=== PATIENT | male | born 1950 | race Caucasian/White ===

== ENCOUNTER → 2018-01-28 | Outpatient (CLI) | payer MEDICARE, OTHER ==
--- NOTE | 2018-01-28 08:15 | US ---
EXAMINATION TYPE: US abdomen complete DATE OF EXAM: 01/28/2018 COMPARISON: NONE CLINICAL HISTORY: R10.13 Epigastric pain. EXAM MEASUREMENTS: Liver Length: 15.6 cm Gallbladder Wall: 0.2 cm CBD: 0.2 cm Spleen: 11.2 cm Right Kidney: 11.2 x 3.8 x 4.8 cm Left Kidney: 11.2 x 4.1 x 4.5 cm Pancreas: wnl Liver: wnl Gallbladder: wnl CBD: wnl Spleen: wnl Right Kidney: No hydronephrosis or masses seen Left Kidney: No hydronephrosis or masses seen Upper IVC: wnl Abd Aorta: atherosclerotic changes noted, bifurcation obscured by bowel gas. Midportion measures up to 2.8 cm. The liver is homogenous. The intrahepatic portion of the IVC and proximal abdominal aorta are within normal limits. There is no evidence of cholelithiasis. Common bile duct is unremarkable. The visu alized portions of the pancreas are homogenous. The spleen is unremarkable. Kidneys are symmetric a nd free of hydronephrosis. No renal lesions are seen. IMPRESSION: No sonographic evidence of cholelithiasis or acute cholecystitis. No nephrolithiasis or h ydronephrosis. Atherosclerosis of the abdominal aorta with prominent size in its midportion but no ev idence of aneurysmal dilatation.
[2018-01-28 08:16] LABS: Basophils # (A) 0.1 k/uL (0-0.2); Basophils % (A) 1 %; Eosinophils # (A) 0.4 k/uL (0-0.7); Eosinophils % (A) 4 %; HCT 35.7 % (39.0-53.0); HGB 11.6 gm/dL (13.0-17.5); Lymphocytes # (A) 1.8 k/uL (1.0-4.8); Lymphocytes % (A) 17 %; MCH 27.9 pg (25.0-35.0); MCHC 32.6 g/dL (31.0-37.0); MCV 85.4 fL (80.0-100.0); Monocytes # (A) 0.7 k/uL (0-1.0); Monocytes % (A) 6 %; Neutrophils # (A) 7.6 k/uL (1.3-7.7); Neutrophils % (A) 70 %; Platelet Count 373 k/uL (150-450); RBC 4.18 m/uL (4.30-5.90); RDW 13.5 % (11.5-15.5); WBC 10.8 k/uL (3.8-10.6)
[2018-01-28 08:44] LABS: ALT 22 U/L (21-72); AST 14 U/L (17-59); Albumin 3.7 g/dL (3.5-5.0); Alkaline Phosphatase 70 U/L (38-126); Anion Gap 12 mmol/L; Blood Urea Nitrogen 18 mg/dL (9-20); Calcium 9.1 mg/dL (8.4-10.2); Carbon Dioxide 23 mmol/L (22-30); Chloride 108 mmol/L (98-107); Glucose 94 mg/dL (74-99); Potassium 4.6 mmol/L (3.5-5.1); Sodium 143 mmol/L (137-145); Total Bilirubin 0.5 mg/dL (0.2-1.3); Total Protein 6.4 g/dL (6.3-8.2)
== END | disposition home or self-care (01) ==
LOC: RADUSWWP 07:18
PROVIDERS: ATTEND Internal Medicine Gastroenterology
DX: I70.0 Atherosclerosis of aorta (principal); F10.10 Alcohol abuse, uncomplicated
CPT/HCPCS: 36415; 76700; 80053; 85025

== ENCOUNTER 2018-03-13 08:59 | Day surgery (SDC) | payer MEDICARE, OTHER ==
[2018-03-11 15:00] VITALS: BMI 25.1
[~2018-03-13 08:59] MED LIST: LACTATED RINGERS 1,000 ML IV SCH
[2018-03-13] MEDS ORDERED: LIDOCAINE 1% 20 ML VIAL (10MG/ML) FOR IV START INTRADERMA ONE (10:19)
[2018-03-13 10:33] VITALS: RESP 16; TEMP 98.4
[2018-03-13] MEDS ORDERED: FAMOTIDINE 20 MG/2 ML VIAL IVP ONE (10:43)
[2018-03-13] MEDS ORDERED: PROPOFOL 10 MG/ML 20 ML VIAL IV ONE (10:51)
--- NOTE | 2018-03-13 11:12 | P.PCN ---
Date of Procedure: 03/13/18 Procedure(s) Performed: BRIEF HISTORY: Patient is a 67-year-old pleasant white male, scheduled for an elective colonoscopy as a part of screening for colon neoplasia. PROCEDURE PERFORMED: Colonoscopy with biopsy and snare polypectomy and tattooing with Joann ink.. PREOPERATIVE DIAGNOSIS: For colon cancer. IV sedation per Anesthesia. PROCEDURE: After informed consent was obtained, the patient, was brought into the endoscopy unit. IV sedation was administered by Anesthesia under continuous monitoring. Digital rectal examination was normal. Initially the Olympus CF- 160 flexible video colonoscope was then inserted in the rectum, gradually advanced into the hepatic flexure where there was a circumferential ulcerated near obstructing mass identified in the scope could not be advanced further. At this time multiple biopsies were done from the ulcerated mass. Tattooing was performed in the distal end of the mass. The transverse colon, descending colon, sigmoid colon, and rectum appeared normal. In the rectum there were 5 mm 2 polyps that were removed by snare polypectomy. Scattered sigmoid diverticulosis seen. Retroflexion was performed in the rectum and small internal hemorrhoids were seen. The patient tolerated the procedure well. IMPRESSION: Circumferential ulcerated near obstructing mass in the hepatic flexure status post multiple biopsies. Scope could not be advanced into the right colon 5 mg 2 proximal rectal polyp status post polypectomy scattered sigmoidal diverticulosis RECOMMENDATIONS: Findings of this examination were discussed with the patient as well as his family. He was advised to follow with the biopsy results. He will be scheduled for a CT of the abdomen and pelvis and he'll be seen in office early next week.
[2018-03-13 11:46] VITALS: BP 144/84; PULSE 55
== END 2018-03-13 12:32 | disposition home or self-care (01) ==
LOC: ORWHC2ENDO 08:59
PROVIDERS: ATTEND Internal Medicine Gastroenterology
DX: Z12.11 Encounter for screening for malignant neoplasm of colon (principal); C18.3 Malignant neoplasm of hepatic flexure; K62.1 Rectal polyp; K57.30 Diverticulosis of large intestine without perforation or abscess without bleeding; K64.8 Other hemorrhoids; K21.9 Gastro-esophageal reflux disease without esophagitis; Z79.899 Other long term (current) drug therapy
CPT/HCPCS: 88305; 45380; 45385; 45381; J2704; 44404

== ENCOUNTER → 2018-03-15 | Outpatient (CLI) | payer MEDICARE, OTHER ==
[2018-03-15 18:24] LABS: Blood Urea Nitrogen 17 mg/dL (9-20)
--- NOTE | 2018-03-16 21:31 | CT ---
EXAMINATION TYPE: CT abdomen pelvis wo/w con DATE OF EXAM: 03/15/2018 COMPARISON: NONE HISTORY: 67-year-old male with abdominal pain/colon mass TECHNIQUE: Contiguous axial scanning of the abdomen and pelvis before and after administration of 100 ml Isovue 300 IV contrast. Delayed images through the kidneys and coronal/sagittal reconstructions performed. CT DLP: 1984 mGycm Automated exposure control for dose reduction was used. FINDINGS: The heart is normal size with a small anterior basilar pericardial effusion. Lung bases clear without pleural effusion. There is some focal narrowing of the origin of the celiac axis with slight dilatat ion of the proximal segment and 9 mm. If there are any chronic symptoms in this patient, correlation could be made for possible median arcuate ligament syndrome. No focal liver lesion or biliary ductal dilatation. Portal venous system is patent. Gallbladder, adrenal glands, kidneys, spleen, appear within normal limits. Suggestion of a small 7 mm hypodense lesion along the distal pancreatic body, axial image 18. A few borderline sized mid abdominal lymph nodes measure 7 mm, axial image 32 and coronal image 34. M oderate atherosclerotic calcifications with fusiform dilatation of the infrarenal abdominal aorta up to 2.8 cm. Distal abdominal aorta is also fusiform dilated at 2.4 cm. Moderate prostatic calcificatio ns in the common iliac arteries. No dilated small bowel, free fluid, or free air. Oral contrast has progressed to the rectum. There is some circumferential wall thickening of the distal sigmoid and rectum with a sigmoid diverticulosis. No surrounding inflammatory change. Moderate to large fatty direct left inguinal hernia containing some fluid. There is an irregular annular mass involving the middle third transverse colon spanning 8.5 cm narrow ing the colonic lumen. Prostate gland is enlarged measuring 5.7 cm wide. Bladder incompletely distended. No abnormal fluid c ollection in the pelvis or pelvic lymphadenopathy. Bones: Degenerative changes at the hips. Additional degenerative changes throughout the lumbar spine. No osseous destructive process. IMPRESSION: 1. IRREGULAR ANNULAR MASS INVOLVING AN 8.5 CM SEGMENT OF MID TRANSVERSE COLON HIGHLY SUGGESTIVE OF CO LEO CANCER. 2. THERE ARE A VIEW BORDERLINE SIZED MIDABDOMINAL LYMPH NODES MEASURING UP TO 7 MM WHICH ARE NONSPECI FIC. 3. MODERATE TO LARGE FAT-CONTAINING DIRECT LEFT INGUINAL HERNIA ALSO CONTAINS SOME FLUID. CORRELATE F OR ANY LEFT INGUINAL PAIN TO EXCLUDE HERNIA INCARCERATION. 4. SIGMOID DIVERTICULOSIS. THERE IS MILD WALL THICKENING OF THE DISTAL SIGMOID AND RECTUM THAT COULD REPRESENT COLITIS. THE WALL THICKENING IS NOT CENTERED ALONG ANY DIVERTICULA TO SUGGEST DIVERTICULITI S. 5. A 7 MM HYPODENSE LESION IN THE pancreatic BODY. SOME DIFFERENTIAL CONSIDERATIONS INCLUDE BUT ARE N OT LIMITED TO a DILATED SIDE BRANCH RADICLE, SEQUELA OF PRIOR PANCREATITIS, AND A SMALL SEROUS CYSTAD ENOMA. ATTENTION ON PATIENT'S FOLLOW-UP EXAMS. 6. PROSTATOMEGALY (5.7 CM WIDE).
== END | disposition home or self-care (01) ==
LOC: RADCTMAIN 17:41
PROVIDERS: ATTEND Internal Medicine Gastroenterology
DX: K63.89 Other specified diseases of intestine (principal); K40.90 Unilateral inguinal hernia, without obstruction or gangrene, not specified as recurrent; K57.30 Diverticulosis of large intestine without perforation or abscess without bleeding; K86.89 Other specified diseases of pancreas; N40.0 Benign prostatic hyperplasia without lower urinary tract symptoms
CPT/HCPCS: 82565; 84520; 74178; 36415; Q9967

== ENCOUNTER → 2018-12-16 | Outpatient (CLI) | payer MEDICARE, OTHER ==
[2018-12-16 11:37] LABS: Blood Urea Nitrogen 13 mg/dL (9-20)
--- NOTE | 2018-12-16 14:03 | CT ---
EXAMINATION TYPE: CT abdomen pelvis w con DATE OF EXAM: 12/16/2018 COMPARISON: 03/15/2018 HISTORY: 68-year-old male Follow up colon CA. TECHNIQUE: Contiguous axial scanning of the abdomen and pelvis following administration of 100 ml Iso emma 300 IV contrast. Delayed images through the kidneys and coronal/sagittal reconstructions perform ed. CT DLP: 1373 mGycm Automated exposure control for dose reduction was used. FINDINGS: Heart normal size without pericardial effusion. Mild dependent atelectasis lung bases. Some strandy a telectasis inferior lingula. No pleural effusion. Ectatic aorta at the thoracoabdominal junction measuring 2.8 cm. Mild to moderate atherosclerotic plaque within the proximal SMA. Fusiform dilatations of the infraren al abdominal aorta measuring 2.8 cm and then 2.4 cm, unchanged. Moderate scattered atherosclerotic ao rtic calcifications are present. No focal liver lesion or biliary ductal dilatation. Stable 8 mm pancreatic body hypodense lesion. Stability suggests a benign etiology. Gallbladder, adrenal glands, right kidney, spleen appear within normal limits. A couple subcentimeter hypodensities in the left kidney are unchanged, likely represent cysts Postsurgical changes of partial colectomy with colonic colonic anastomosis along the proximal third t ransverse colon. There is a tortuous course to some of the bowel loops in the right side of the abdom en around the anastomosis. Mild circumferential wall thickening involving the proximal to mid sigmoid colon with diverticular ch sobia. Some prominent pericolonic stranding along this region, likely pericolonic vessels. Redemonstrated is a large direct left inguinal hernia containing a few unopacified small bowel loops. No abnormal bowel dilatation. There is a new, mildly enlarged upper mid abdominal mesenteric lymph node measuring 1.3 cm. Otherwise, no additional mesenteric or retroperitoneal lymphadenopathy seen. Bladder distended. Prostate gland is heterogeneous and enlarged measuring 5.8 cm wide. No abnormal fl uid collection in the pelvis or pelvic lymphadenopathy seen. Bones: Mild degenerative changes of the hips. Hypertrophic facet arthropathy lower lumbar spine. 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 IMPRESSION: 1. INTERVAL PARTIAL COLECTOMY WITH ANASTOMOSIS ALONG THE PROXIMAL THIRD TRANSVERSE COLON. 2. A NEW, MILDLY ENLARGED UPPER MID ABDOMINAL MESENTERIC LYMPH NODE MEASURING 1.3 CM. SHORT INTERVAL FOLLOW-UP RECOMMENDED A METASTATIC LYMPH NODE IS NOT EXCLUDED AT THIS TIME. 3. NO OTHER EVIDENCE FOR METASTATIC DISEASE. 4. SIGMOID DIVERTICULOSIS WITH WALL THICKENING. THERE IS SURROUNDING FAT STRANDING SUSPECTED TO REPRE SENT PERICOLONIC VESSELS RATHER THAN INFLAMMATION. CORRELATE FOR ANY ACUTE SYMPTOMS . IF NO ACUTE SYM PTOMS, CORRELATE FOR POSSIBLE CHRONIC DIVERTICULITIS. 5. TORTUOUS COURSE TO MANY OF THE BOWEL LOOPS IN THE RIGHT SIDE OF THE ABDOMEN LOCATED AROUND THE BENSON STOMOSIS LIKELY A PRODUCT OF REPOSITIONING OF THE BOWEL AND MESENTERY AFTER COLON RESECTION.
== END | disposition home or self-care (01) ==
LOC: RADCTMAIN 10:47
PROVIDERS: ATTEND Internal Medicine Hematology & Oncology
DX: K57.30 Diverticulosis of large intestine without perforation or abscess without bleeding (principal); K63.89 Other specified diseases of intestine; R59.0 Localized enlarged lymph nodes; C18.4 Malignant neoplasm of transverse colon; Z91.048 Other nonmedicinal substance allergy status; Z90.49 Acquired absence of other specified parts of digestive tract
CPT/HCPCS: 82565; 84520; 74177; 36415; Q9967

== ENCOUNTER → 2019-03-13 | Outpatient (CLI) | payer MEDICARE, OTHER ==
--- NOTE | 2019-03-13 10:38 | CT ---
EXAMINATION TYPE: CT abdomen pelvis w con DATE OF EXAM: 03/13/2019 COMPARISON: 12/16/2018 and 03/15/2018 HISTORY: Follow up for known colon CA. CT DLP: 991.5 mGycm Automated exposure control for dose reduction was used. TECHNIQUE: Helical acquisition of images was performed from the lung bases through the pelvis. CONTRAST: Performed with Oral Contrast and with IV Contrast, patient injected with 100 mL of Isovue 370. FINDINGS: LUNG BASES: Right basilar 2 mm pulmonary nodule is unchanged retrospectively from the prior on series 4 image 7, solid in nature, and of low suspicion for metastasis. Minimal strand-like bibasilar atele ctasis is also seen. LIVER/GB: No focal hepatic lesion is identified. No intrahepatic biliary ductal dilatation. No cholel ithiasis. PANCREAS: There is redemonstration of a hypoattenuated approximately 6 mm pancreatic neck lesion. SPLEEN: No significant abnormality is seen. ADRENALS: No focal adrenal gland nodule KIDNEYS: Kidneys enhance and excrete symmetrically other than a punctate to small to accurately mya cterize left inferior renal lesion on series 3 image 30. No hydronephrosis. FREE AIR: No free air is visualized. REPRODUCTIVE ORGANS: There is enlarged prostate gland measuring up to 5.7 cm with central zone calcif ications. URINARY BLADDER: No significant abnormality is seen. ADENOPATHY: Marked local progression of disease of a pathologic lymph node within the mid mesentery previously measuring 1.3 cm in short axis and now measuring up to 3.4 cm in short axis with central n ecrosis and surrounding inflammatory change. This appears solitary as no additional pathologically en larged lymph nodes are appreciated in the abdomen or pelvis. OSSEOUS STRUCTURES: No new suspicious osseous lesion. 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 BOWEL: There has been partial colectomy of the previously seen annular transverse colonic mass with a nastomosis again noted along the proximal third of the transverse colon. There is long segment sigmoid bowel wall thickening and numerous sigmoid diverticula. Findings could be on the basis of chronic diverticulitis. Focal narrowing of the mid transverse colon distal to the anastomotic site is seen on the prior and appears to relate to an incomplete stricture (series 3 imag es 40 through 45). OTHER: There is a small bowel containing left inguinal hernia. No dilation of bowel to suggest curren t obstruction. Patulous right inguinal canal is also seen with small bowel abutting the defect. Again there is fusiform dilatation of the infrarenal abdominal aorta measuring up to 2.8 cm. Moderate atherosclerosis of the abdominal aorta and its branches is again noted. IMPRESSION: 1. MARKED LOCAL PROGRESSION OF PATHOLOGIC ADENOPATHY IN THE MID MESENTERY ADJACENT TO THE PRIOR TRANS VERSE COLON CARCINOMA WITH INCREASE IN SIZE FROM 1.3 CM IN SHORT AXIS TO 3.4 CM IN SHORT AXIS AND [place] TRAL NECROSIS. NO ADDITIONAL ADENOPATHY. 2. SMALL BOWEL CONTAINING LEFT INGUINAL HERNIA AND PATULOUS RIGHT INGUINAL RING WITH SMALL BOWEL ABUT MENT. 3. INCOMPLETE MID TRANSVERSE COLONIC STRICTURE SIMILAR TO THE PRIOR EXAM DISTAL TO THE ANASTOMOTIC SI TE. 4. LONG SEGMENT SIGMOID BOWEL WALL THICKENING APPEARS SLIGHTLY IMPROVED FROM THE PRIOR AND IS LIKELY ON THE BASIS OF CHRONIC DIVERTICULITIS. 5. FUSIFORM ECTASIA OF THE ABDOMINAL AORTA. 6. RETROSPECTIVELY STABLE PUNCTATE RIGHT LOWER LOBE PULMONARY NODULE OF LOW SUSPICION FOR METASTASIS.
== END | disposition home or self-care (01) ==
LOC: RADCTMAIN 07:57
PROVIDERS: ATTEND Internal Medicine Hematology & Oncology
DX: C18.4 Malignant neoplasm of transverse colon (principal); K40.90 Unilateral inguinal hernia, without obstruction or gangrene, not specified as recurrent; K56.699 Other intestinal obstruction unspecified as to partial versus complete obstruction; K57.32 Diverticulitis of large intestine without perforation or abscess without bleeding; J30.1 Allergic rhinitis due to pollen; Z91.048 Other nonmedicinal substance allergy status
CPT/HCPCS: 82565; 84520; 74177; 36415; Q9967

== ENCOUNTER → 2019-03-29 | Outpatient (CLI) | payer MEDICARE, OTHER ==
--- NOTE | 2019-03-31 06:47 | PE ---
EXAMINATION TYPE: PET CT fusion skull to thigh DATE OF EXAM: 03/29/2019 COMPARISON: CT abdomen and pelvis March 13, 2019 and older CTs HISTORY: Colorectal cancer progress study after completing chemotherapy December 08, 2018, history of colon surgery in 2018. TECHNIQUE: Following the intravenous administration of 11.573 mCi of F-18 FDG, whole body images are performed from the skull base to the midthigh. Images are reviewed on the computer in the coronal, axial, and sagittal planes. Reconstructed rotating images are created on independent workstation and reviewed on the computer. A noncontrast CT is performed in conjunction with the PET scan. SCAN: Subsequent Scan FINDINGS: SKULL BASE AND NECK: There are suspicious hypodense right thyroid hypermetabolic nodule measuring 2. 0 x 1.2 cm axial image 60, max SUV is 28.22. CHEST, MEDIASTINUM, AND HILAR REGION: No evidence of suspicious hypermetabolic uptake in the thorax a re present. ABDOMEN AND PELVIS: Midabdominal mesenteric spiculated mass is redemonstrated measuring 4.2 x 3.7 cm axial image 159, max SUV is 6.99 on axial image 154. No additional areas of suspicious hypermetabolic uptake. OSSEOUS STRUCTURES: No suspicious areas of abnormal hypermetabolic uptake. OTHER CT: Mild calcified plaque bilateral carotid bulbs is present. There is right internal jugular Mediport catheter terminating in SVC. Background mild underlying emph ysematous change is present. Cardiomegaly is seen. Moderate coronary artery calcification is identifi ed which is noted marker for underlying coronary artery disease. Diverticula in sigmoid colon are present. Surgical changes from right-sided partial colectomy are red emonstrated near axial image 173. Enlarged prostate gland consistent with BPH is identified. There is persistent large left inguinal hernia containing fat as well as portions of bowel and mesenteric ves sels. There is multilevel facet arthropathy in the mid to lower lumbar spine. Multilevel spurring of the th oracolumbar spine noted. IMPRESSION: 1. Confirmation of malignant recurrence or progression in the midabdomen. 2. Suspicious markedly hypermetabolic right thyroid nodule, advise ultrasound guided sampling to excl ude second malignancy.
== END | disposition home or self-care (01) ==
LOC: RADPETMAIN 12:32
PROVIDERS: ATTEND Internal Medicine Hematology & Oncology
DX: C18.4 Malignant neoplasm of transverse colon (principal); E04.1 Nontoxic single thyroid nodule
CPT/HCPCS: 78815; A9552

== ENCOUNTER → 2019-04-02 | Day surgery (SDC) | payer MEDICARE, OTHER ==
[~2019-04-02] MED LIST changes: +ALPRAZolam 0.25 MG TAB PO STA; +HYDROmorphone 1 MG/ML 1 ML SYRINGE IVP STA; -LACTATED RINGERS 1,000 ML IV SCH
[2019-04-02 09:37] VITALS: RESP 16; TEMP 97.6
[2019-04-02 09:38] LABS: Mean Platelet Volume 7.4; Platelet Count 283 k/uL (150-450)
[2019-04-02 09:47] LABS: Prothrombin Time 10.7 sec (9.0-12.0)
[2019-04-02 12:12] VITALS: BP 126/74; PULSE 64
--- NOTE | 2019-04-02 14:28 | CT ---
EXAMINATION TYPE: CT biopsy abdomen percutaneous DATE OF EXAM: 04/02/2019 HISTORY: Abdominal mass COMPARISON: Prior CT 03/13/2019 Maximal barrier technique was utilized. The skin overlying a suitable path to the lesion was localiz ed using CT and the overlying skin was prepped and draped. Lidocaine used for local anesthesia. A s kin garland made with a scalpel. Using CT guidance, access was gained to the lesion with a 17-gauge hair de needle. Core specimen submitted to cytology following 18-gauge coaxial needle placement. 2 passes performed. Following the procedure no immediate complications. The patient is discharged in stabl e condition. Hemostasis achieved. IMPRESSION: SUCCESSFUL CT GUIDED CORE BIOPSY of abdominal mass. PATHOLOGY PENDING. THIS PROCEDURE WAS PERFORMED BY THE UNDERSIGNED.
== END | disposition home or self-care (01) ==
LOC: RADPROMAIN 09:03
PROVIDERS: ATTEND Internal Medicine Hematology & Oncology
DX: R19.07 Generalized intra-abdominal and pelvic swelling, mass and lump (principal); C18.4 Malignant neoplasm of transverse colon
CPT/HCPCS: 36415; 49180; 77012; 85049; 85610; 88305; 88341; 88342

== ENCOUNTER → 2019-10-25 | Outpatient (CLI) | payer MEDICARE, OTHER ==
--- NOTE | 2019-10-28 08:07 | PE ---
EXAMINATION TYPE: PET CT fusion skull to thigh DATE OF EXAM: 10/25/2019 COMPARISON: PET/CT dated 03/29/[address] abdomen pelvis dated 03/13/2019 HISTORY: Colon carcinoma. Subsequent exam. Chemotherapy completed in 2019 and colorectal surgery on . Suspected recurrence on the prior CT of 03/13/2019 and PET/CT of 03/29/2019 with negative subs equent biopsy. However increase in CEA level clinically. TECHNIQUE: Following the intravenous administration of 10.89 mCi of F-18 FDG, whole body images are performed from the skull base to the midthigh. Images are reviewed on the computer in the coronal, a xial, and sagittal planes. Reconstructed rotating images are created on independent workstation and reviewed on the computer. A localization and attenuation correction CT is performed in conjunction with the PET scan. SCAN: Subsequent FINDINGS: Mediastinal background: 1.76 Abdominal background: 2.86 SKULL BASE AND NECK: There is a hypermetabolic thyroid nodule again measuring approximately 2.0 cm p reviously having a maximum SUV of 28.22 and currently having a maximum SUV of 50 to CHEST, MEDIASTINUM, AND HILAR REGION: No suspicious hypermetabolic activity. ABDOMEN AND PELVIS: There is response to treatment with decrease in size of the mesenteric mass/adeno tyler from the prior PET/CT of 4.2 x 3.7 to 2.1 x 1.8. This is seen at the previous site of colon car cinoma and remains highly suspicious for recurrence. This has a current maximum SUV of 2.39 and prior maximum SUV of 6.99. Partial colectomy is seen. 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 There is some focal uptake around a left hernia defect circumferentially. Correlate for acute strain. OSSEOUS STRUCTURES: No suspicious hypermetabolic activity. OTHER CT: There is a right-sided Mediport. Mild emphysematous change of the lungs. Moderate coronary calcifications as seen on the prior. Again right-sided thyroid nodule as described above. Mild fronta l and ethmoid mucosal thickening with 1.6 cm left maxillary mucosal retention cyst. Moderate degenera tive disc disease of the cervical spine and mild of the thoracic spine with moderate of the lumbar sp ine and mild degenerative changes of the hips. Atheromatous changes are seen of the aorta throughout. Subsegmental atelectasis within the lungs. Diastases recti is seen. IMPRESSION: 1. Response to treatment. Decrease in size and hypermetabolic activity of the mesenteric mass/adenopa thy. 2. Redemonstration of a highly suspicious 2 cm right thyroid nodule. This has a maximum SUV of 50. Th yroid ultrasound and biopsy is recommended.
== END | disposition home or self-care (01) ==
LOC: RADPETMAIN 08:18
PROVIDERS: ATTEND Internal Medicine Hematology & Oncology
DX: E04.1 Nontoxic single thyroid nodule (principal); C18.4 Malignant neoplasm of transverse colon
CPT/HCPCS: 78815; A9552

== ENCOUNTER → 2019-10-31 | Outpatient (CLI) | payer MEDICARE, OTHER ==
--- NOTE | 2019-11-02 21:01 | US ---
EXAMINATION TYPE: US thyroid st tissue head/neck DATE OF EXAM: 10/31/2019 COMPARISON: NONE CLINICAL HISTORY: E04.1 THYROID NODULE. Nodule visualized on PET scan GLAND SIZE: Right Lobe: 4.1 x 2.4 x 2.3 cm Overall Parenchyma: homogenous Left Lobe: 4.3 x 1.9 x 1.2 cm Overall Parenchyma: homogeneous Isthmus Thickness: 0.2 cm NODULES RIGHT: # of nodules measured on right: 1 1. 2.3 X 2.3 x 1.8 cm hypoechoic solid nodule at the mid pole with well-defined margins; . This no dule is taller than wide and shows intranodular vascularity. Prior size: No previous LEFT: # of nodules measured on left: 0 ISTHMUS: # of nodules measured in the isthmus: 0 Bilateral neck scanned, no evidence of lymphadenopathy. IMPRESSION: There is a dominant 2.3 cm solid mass in the right thyroid lobe. Follow-up recommended. Malignant lis or is possible.
== END | disposition home or self-care (01) ==
LOC: RADUSWWP 16:53
PROVIDERS: ATTEND Internal Medicine Hematology & Oncology
DX: E04.1 Nontoxic single thyroid nodule (principal); Z91.09 Other allergy status, other than to drugs and biological substances
CPT/HCPCS: 76536

== ENCOUNTER → 2020-04-02 | Outpatient (CLI) | payer MEDICARE, OTHER ==
--- NOTE | 2020-04-04 14:03 | PE ---
EXAMINATION TYPE: PET CT fusion skull to thigh DATE OF EXAM: 04/02/2020 COMPARISON: 10/31/2019 ultrasound Prior PET/CT: 10/25/2019, 03/29/2019 HISTORY: Abnormal ultrasound, history of colon carcinoma TECHNIQUE: Following the intravenous administration of 13.3 mCi of F-18 FDG, whole body images are p erformed from the skull base to the midthigh. Images are reviewed on the computer in the coronal, ax ial, and sagittal planes. Reconstructed rotating images are created on independent workstation and r eviewed on the computer. A localization and attenuation correction CT is performed in conjunction w ith the PET scan. DLP: 503.81 mGycm SCAN: Subsequent Blood glucose: 108 mg/dL Average Mediastinum SUV: 0.87 Average Liver SUV: 1.22 FINDINGS: NECK: There is marked increased uptake within the right lobe thyroid. This has an SUV value of 41.2 compatible with neoplasm. THORAX: No abnormal uptake ABDOMEN: No abnormal uptake. Previous uptake within the right upper quadrant is not evident. PELVIS: There is a small focus of radiotracer accumulation within the anterior left inguinal region c ould be a small lymph node. This has an SUV value of 4.75. Metastatic lesion should be considered. OSSEOUS STRUCTURES: No abnormal uptake LOCALIZATION CT: Uptake within the right lobe thyroid appears to correspond to a very subtle hypodens ity within the full right lobe thyroid. There are scattered small lymph nodes within the mediastinum. Coronary artery calcification is present. COMPARISON: Uptake within the right thyroid is again identified and was present previously. Uptake wa s not identified in the left inguinal region previously and is a new finding. Previous mesenteric mas s and hypermetabolic activity is not evident on the current exam. IMPRESSION: 1. New left inguinal uptake suspicious for a small early metastatic lesion. 2. No recurrent mesenteric abnormal uptake. 3. Uptake within the right thyroid lobe highly suggestive for neoplasm remains present.
== END | disposition home or self-care (01) ==
LOC: RADPETMAIN 10:42
PROVIDERS: ATTEND Internal Medicine Hematology & Oncology
DX: R93.89 Abnormal findings on diagnostic imaging of other specified body structures (principal); C18.4 Malignant neoplasm of transverse colon
CPT/HCPCS: 78815; A9552

== ENCOUNTER → 2020-07-23 | Outpatient (CLI) | payer MEDICARE, OTHER ==
--- NOTE | 2020-07-27 09:37 | PE ---
EXAMINATION TYPE: PET CT fusion skull to thigh DATE OF EXAM: 07/23/2020 COMPARISON: PET/CT 04/02/2020 Prior PET/CT: PET/CT 04/02/2020 HISTORY: Colorectal cancer TECHNIQUE: Following the intravenous administration of 11.28 mCi of F-18 FDG, whole body images are performed from the skull base to the midthigh. Images are reviewed on the computer in the coronal, a xial, and sagittal planes. Reconstructed rotating images are created on independent workstation and reviewed on the computer. A localization and attenuation correction CT is performed in conjunction with the PET scan. SCAN: Subsequent Scan Blood glucose: 97 mg/dL FINDINGS: NECK: There is redemonstrated marked hypermetabolic activity of the right thyroid gland hypodense le nadir. THORAX: No abnormal hypermetabolic activity. ABDOMEN/PELVIS: No abnormal hypermetabolic activity. The previously described hypermetabolic lymph no de in the left inguinal region is not demonstrated on current exam. OSSEOUS STRUCTURES: No abnormal hypermetabolic activity. LOCALIZATION CT: Hypodense lesion of the right thyroid gland. Right-sided MediPort. Calcified coronar y artery disease. No adrenal nodules. No evidence of lymphadenopathy of the neck, chest, or abdomen o r pelvis. Bowel demonstrates patent right hemicolectomy changes with anastomosis in the right upper q uadrant. There is marked colonic diverticulosis. No acute diverticulitis. There is infrarenal abdomin al aortic aneurysm up to 3.1 cm, unchanged versus 04/02/2020. There is distal infrarenal abdominal aor tic ectasia measuring up to 2.4 cm. COMPARISON: Redemonstrated uptake within the right thyroid lesion. Previously demonstrated hypermetab olic left inguinal lymph node not seen on current exam. IMPRESSION: 1. Hypermetabolic activity of the right thyroid lesion redemonstrated, suspicious for malignancy. Cor relate with any available outside pathology reports or consider fine-needle aspiration. 2. No evidence of recurrent or metastatic colorectal cancer of the chest, abdomen, or pelvis. 3. Infrarenal abdominal aortic 3.1 cm aneurysm.
== END | disposition home or self-care (01) ==
LOC: RADPETMAIN 11:17
PROVIDERS: ATTEND Internal Medicine Hematology & Oncology
DX: C18.4 Malignant neoplasm of transverse colon (principal); E07.9 Disorder of thyroid, unspecified; I71.4 Abdominal aortic aneurysm, without rupture; Z92.21 Personal history of antineoplastic chemotherapy
CPT/HCPCS: 78815; A9552

== ENCOUNTER → 2020-08-02 | Outpatient (CLI) | payer MEDICARE, OTHER ==
--- NOTE | 2020-08-03 07:57 | US ---
EXAMINATION TYPE: US thyroid st tissue head/neck DATE OF EXAM: 08/02/2020 COMPARISON: 10/31/2019 CLINICAL HISTORY: 69-year-old male E04.1 Thyroid Nodule. TECHNIQUE: Multiple sonographic images of the thyroid gland are obtained. FINDINGS: GLAND SIZE: Right Lobe: 4.7 x 1.9 x 3.5 cm Overall Parenchyma: homogenous Left Lobe: 4.1 x 1.5 x 1.9 cm Overall Parenchyma: homogeneous Isthmus Thickness: 0.3 cm NODULES RIGHT: # of nodules measured on right: 1 1. 2.6 x 1.8 x 2.3 cm isoechoic solid nodule at the mid and lower pole with well-defined margins. T his nodule is taller than wide and shows intranodular vascularity. Prior size: 2.3 x 1.8 x 2.3 cm LEFT: # of nodules measured on left: 0 ISTHMUS: # of nodules measured in the isthmus: 0 Bilateral neck scanned: no evidence of lymphadenopathy. IMPRESSION: Solitary nodule at the mid to lower right lobe is stable to minimally larger at 2.6 x 2.3 cm (versus 2.3 x 2.3 cm, previously). Thyroid cancer is in the differential given the hypermetabolism on recent PET/CT.
== END | disposition home or self-care (01) ==
LOC: RADUSWWP 15:29
PROVIDERS: ATTEND Internal Medicine Hematology & Oncology
DX: E04.1 Nontoxic single thyroid nodule (principal)
CPT/HCPCS: 76536

== ENCOUNTER → 2021-02-04 | Outpatient (CLI) | payer MEDICARE, OTHER ==
--- NOTE | 2021-02-07 14:15 | PE ---
EXAMINATION TYPE: PET CT fusion skull to thigh DATE OF EXAM: 02/04/2021 COMPARISON: PET CT July 23, 2020 and older studies. HISTORY: Colorectal cancer progress study. History of colon surgery 2018 or 19 completed chemothera py in 2019. Currently on immunotherapy until 6 weeks ago. TECHNIQUE: Following the intravenous administration of 12.08 mCi of F-18 FDG, whole body images are performed from the skull base to the midthigh. Images are reviewed on the computer in the coronal, a xial, and sagittal planes. Reconstructed rotating images are created on independent workstation and reviewed on the computer. A localization and attenuation correction CT is performed in conjunction with the PET scan. Blood glucose level equals 91. SCAN: Subsequent Scan FINDINGS: SKULL BASE AND NECK: Persistent roughly 2.8 x 2.2 cm hypodense right thyroid nodule with abnormal hy permetabolic uptake, this is unchanged from several prior studies. Neoplasm at this level cannot be e xcluded. Sampling strongly advised if it has not been performed. No new areas of abnormal hypermetabolic uptake. CHEST, MEDIASTINUM, AND HILAR REGION: No new areas of abnormal hypermetabolic uptake. ABDOMEN AND PELVIS: Mild nonspecific bowel uptake. Normal excretion. Surgical changes from partial ri ght-sided proximal colectomy redemonstrated. No suspicious new areas of abnormal hypermetabolic uptak e. OSSEOUS STRUCTURES: No new areas of abnormal hypermetabolic uptake. OTHER CT: Mild calcified plaque bilateral carotid bulbs is redemonstrated. Stable right internal jugular Mediport catheter. Background mild underlying emphysematous change is r edemonstrated. Stable mild cardiomegaly. Moderate coronary artery calcification is redemonstrated whi ch is noted marker for underlying coronary artery disease. Sigmoid colonic diverticulosis redemonstrated. Surgical changes from right-sided partial colectomy ar e redemonstrated near axial image 172. Enlarged prostate gland consistent with BPH is again seen. Ath erosclerotic and ectatic abdominal aorta is again seen. Small fat-containing umbilical hernia noted. There is multilevel facet arthropathy in the mid to lower lumbar spine. Multilevel spurring of the th oracolumbar spine noted. COMPARISON: No new areas of abnormal hypermetabolic uptake to suggest active neoplastic recurrence. S table suspicious right thyroid lesion.
== END | disposition home or self-care (01) ==
LOC: RADPETMAIN 13:20
PROVIDERS: ATTEND Internal Medicine Hematology & Oncology
DX: C18.4 Malignant neoplasm of transverse colon (principal); Z09 Encounter for follow-up examination after completed treatment for conditions other than malignant neoplasm
CPT/HCPCS: 78815; A9552

== ENCOUNTER → 2021-06-14 | Outpatient (CLI) | payer MEDICARE, OTHER ==
--- NOTE | 2021-06-14 15:38 | XR ---
EXAM TYPE: LUMBAR SPINE X RAY SERIES COMPARISON: NONE HISTORY: Pain TECHNIQUE: 4 views are submitted. FINDINGS: Scoliosis with diffuse osteopenia and multilevel moderate to severe degenerative disc disease with fa cet arthropathy. Suspect multilevel foraminal encroachment. Vascular calcifications noted. The pedicl es are intact. The transverse processes are intact. There is no spondylolisthesis. IMPRESSION: 1. Multilevel moderate to severe degenerative disc disease. 2. Scoliosis.
== END | disposition home or self-care (01) ==
LOC: RADXRMAIN 14:24
PROVIDERS: ATTEND Internal Medicine Hematology & Oncology
DX: M51.36 Other intervertebral disc degeneration, lumbar region (principal); M41.9 Scoliosis, unspecified
CPT/HCPCS: 72100

== ENCOUNTER → 2021-08-26 | Outpatient (CLI) | payer MEDICARE, OTHER ==
--- NOTE | 2021-08-30 08:51 | PE ---
Nuclear medicine PET/CT HISTORY: Colon carcinoma, C 18.4, subsequent Correlation to prior nuclear medicine PET/CT dated 02/04/2021 Patient received 10.8 mCi F-18 FDG intravenously in delayed scanning was performed from the skull bas e to the mid thighs. Localization and attenuation correction CT scan was performed. The hypermetabolic uptake associated with the right lobe of the thyroid is again noted, shows a simil ar appearance, SUV is 65. Hypoattenuating focus is present on CT. Right-sided port is in place, there is a jugular access, distal tip of the catheters within the superior vena cava. There is no mediasti nal, axillary, or hilar adenopathy. No cervical or supraclavicular adenopathy. There is no pleural or pericardial effusion, no evident lung mass. There are coronary artery calcifications. ABDOMEN: There is no adrenal mass or retroperitoneal adenopathy. Infrarenal abdominal aortic aneurysm is present measuring approximately 4 cm. No evident liver mass or suspicious uptake. There is no asc ites. Diverticular changes are extensive in the sigmoid colon. There is thickening of the urinary hoang dder wall likely due to chronic bladder outlet obstruction and prostatic enlargement. Osseous structures show no suspicious uptake. There is some mild uptake present along the proximal le ft upper extremity which is likely muscular. IMPRESSION: Uptake as described in previous report involving the right lobe of thyroid gland, no yumiko tional suspicious uptake.
== END | disposition home or self-care (01) ==
LOC: RADPETMAIN 11:21
PROVIDERS: ATTEND Internal Medicine Hematology & Oncology
DX: C18.4 Malignant neoplasm of transverse colon (principal)
CPT/HCPCS: 78815; A9552

== ENCOUNTER → 2022-03-17 | Outpatient (CLI) | payer MEDICARE, OTHER ==
--- NOTE | 2022-03-20 16:19 | PE ---
Nuclear medicine PET/CT HISTORY: C 18.4, subsequent Patient received 11.7 mCi F-18 FDG intravenously and delayed scanning was performed from the skull ba se to the mid thighs. A localization and attenuation correction CT scan was performed. Correlation to prior nuclear medicine PET/CT 08/26/2021 Average mediastinal uptake SUV is 1.4, average liver uptake SUV is 2.8. Chest and neck: There is no supraclavicular adenopathy, no cervical adenopathy. Right lobe of the thy roid gland again shows marked hypermetabolic uptake as on prior, SUV 67. There is a port in the right pectoral region, catheter tip courses into the superior vena cava via jugular approach. Coronary art robyn calcifications are present. Prevascular node again seen. Crescentic soft tissue at the posterior lateral left lung base is noted which was not present on prio r exam, there is associated uptake SUV 5.2, 3.6, ill-defined abnormal soft tissue at the posterior co stophrenic angle level on the left does not show associated uptake, some heterogeneous areas of atele ctatic appearing lung are also present at the right lung base, there is some associated mild uptake, SUV 2.8. Interstitial changes are also present. There is no mediastinal, axillary, or hilar adenopath y. ABDOMEN: No suspicious uptake. There is no evident retroperitoneal adenopathy or ascites, no evident liver mass. Adrenal glands are unremarkable. Uptake associated with the bowel is thought to be physio logic. There is no pelvic adenopathy or free fluid. Calcified focus at the level just caudal to the n ivan of the pancreas is chronic and is unchanged. Diverticular changes are again seen, postop change n oted to the colon Osseous structures show no lytic or blastic lesion. Degenerative disc change and facet arthropathy ch anges are noted. 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 Consider fine-needle aspiration of thyroid nodule.
== END | disposition home or self-care (01) ==
LOC: RADPETMAIN 11:56
PROVIDERS: ATTEND Internal Medicine Hematology & Oncology
DX: C18.4 Malignant neoplasm of transverse colon (principal); J98.4 Other disorders of lung
CPT/HCPCS: 78815; A9552

== ENCOUNTER 2022-05-23 13:34 | Day surgery (SDC) | payer MEDICARE, OTHER ==
[2022-05-23] MEDS ORDERED: ALPRAZolam 0.25 MG TAB PO STA (14:01)
[2022-05-23 14:04] VITALS: RESP 16; TEMP 98.2
--- NOTE | 2022-05-23 14:51 | US ---
EXAMINATION TYPE: US FNA thyroid first lesion DATE OF EXAM: 05/23/2022 COMPARISON: PET/CT 03/17/2022, ultrasound thyroid 08/02/2020 HISTORY: Thyroid nodule in the right, abnormal PET/CT Maximal barrier technique was utilized. After informed consent, skin overlying the right thyroid nod ule was localized with ultrasound and the overlying skin prepped and draped. Ultrasound was utilized using sterile technique. Lidocaine was used for local anesthesia. Five passes with a 25-gauge needle were made into the nodule and aspirated specimen was submitted to cytology. Following the procedure hemostasis achieved. No immediate complication. The patient discharged in stable condition. IMPRESSION: STATUS POST ULTRASOUND GUIDED FINE NEEDLE ASPIRATION OF THYROID NODULE, PATHOLOGY IS PEND ING. THIS PROCEDURE WAS PERFORMED BY THE UNDERSIGNED.
[2022-05-23 15:08] VITALS: BP 158/89; PULSE 66
== END 2022-05-23 15:07 | disposition home or self-care (01) ==
LOC: RADPROMAIN 13:34
PROVIDERS: ATTEND Internal Medicine Hematology & Oncology
DX: E04.1 Nontoxic single thyroid nodule (principal)
CPT/HCPCS: 10005; 88173; 88305

== ENCOUNTER → 2022-09-22 | Outpatient (CLI) | payer MEDICARE, OTHER ==
--- NOTE | 2022-09-23 13:13 | PE ---
EXAMINATION TYPE: PET CT fusion skull to thigh DATE OF EXAM: 09/22/2022 CLINICAL INDICATION:Male, 71 years old with history of C184 TECHNIQUE: Following the intravenous administration of 11.9 mCi of F-18 FDG, whole body images are performed from the skull base to the midthigh. Images are reviewed on the computer in the coronal, a xial, and sagittal planes. Reconstructed rotating images are created on independent workstation and reviewed on the computer. A non-contrast CT is performed in conjunction with the PET scan. Glucose level 104 mg/dL COMPARISON: CT 03/13/2019, PET/CT 03/17/2022, FINDINGS: Mediastinal SUV mean is 0.8. Hepatic parenchyma SUV mean is 1.7. SKULL BASE AND NECK: Right thyroid mass measures similarly at 3.3 x 1.7 cm with max SUV 61.9, previo usly 67.2, this was previously biopsied. CHEST, MEDIASTINUM, AND HILAR REGION: There is consolidation changes throughout the left lung most pr onounced in the lung apex but also affecting the superior segment of the left lower lobe. Scattered o pacities are noted in the right upper lung as well. There is mild increased FDG activity max SUV 4.9 posteriorly laterally and 3.4 anteriorly. ABDOMEN AND PELVIS: No suspicious FDG activity. No definitive evidence of lymphadenopathy or suspicio us FDG activity within the abdomen or pelvis. OSSEOUS STRUCTURES: No suspicious FDG activity. OTHER CT: Right chest [id number] with tip at the superior cavoatrial junction. Scattered airspace opacities and consolidation are seen throughout the prominent left lung. Fat-containing umbilical her rupesh. Scattered clonic diverticula. Atherosclerosis of the arterial vasculature for renal aortic aneur ysmal dilation up to 3.1 cm similar to prior's. IMPRESSION: 1. Streaky densities/consolidation within the anomaly left upper and superior segment of the left lo wer lobe have increased in size. Findings overall suspicious for infectious/inflammatory process. Cor relate for pneumonia. No definitive evidence for recurrence. Medical therapy and short-term follow-up CT chest is recommended. 2. Persistent very avid right thyroid nodule similar in size.
== END | disposition home or self-care (01) ==
LOC: RADPETMAIN 10:58
PROVIDERS: ATTEND Internal Medicine Hematology & Oncology
DX: C18.4 Malignant neoplasm of transverse colon (principal); E04.1 Nontoxic single thyroid nodule; J98.4 Other disorders of lung
CPT/HCPCS: 78815; A9552

== ENCOUNTER → 2022-11-29 | Outpatient (CLI) | payer MEDICARE, OTHER ==
[2022-11-29 11:45] LABS: African American GFR (CKD) >90 (>60 ml/min/1.73 sqM); Blood Urea Nitrogen 12 mg/dL (9-20); Non-African American GFR(CKD) 88 (>60 ml/min/1.73 sqM)
--- NOTE | 2022-11-29 17:53 | CT ---
EXAMINATION TYPE: CT chest w con DATE OF EXAM: 11/29/2022 COMPARISON: PET CT 09/22/2022 HISTORY: Pulmonary infiltrates on PET scan. Hx colon ca CT DLP: 614 mGycm, Automated exposure control for dose reduction was used. CONTRAST: Performed injected with 70 mL of Isovue 300. TECHNIQUE: Axial images were obtained at 5 mm thick sections. Reconstructed images are reviewed on [employer] computer in the coronal plane. FINDINGS: The thyroid appears prominent on the right lobe and appears to correspond to abnormal uptak e on the PET exam dated There is a small area of infiltrate in the left lateral mid perihilar region measuring 2.5 x 1.7 cm. This appears to be a new infiltrate compared to the multiple prior infiltrates in the left lung. The previous upper lobe infiltrates have resolved. No enlarged mediastinal or hilar adenopathy is evident. The ascending aorta diameter at the level o f the main pulmonary artery is 3.3 cm. The main pulmonary artery diameter at the bifurcation is 2.6 cm. Coronary artery calcification is present. Limited CT sections are obtained through the upper abdomen. Abdomen is essentially unremarkable. IMPRESSIONS: 1. Near-complete resolution of prior left lung infiltrates. Some mild focal tracheal remains in the l eft perihilar region which may be a new infiltrate compared to the PET/CT. Short-term follow-up recom mended..
== END | disposition home or self-care (01) ==
LOC: RADPROMAIN 10:48
PROVIDERS: ATTEND Internal Medicine Hematology & Oncology
DX: C18.4 Malignant neoplasm of transverse colon (principal); D72.819 Decreased white blood cell count, unspecified; G62.0 Drug-induced polyneuropathy; Z71.3 Dietary counseling and surveillance
CPT/HCPCS: 82565; 84520; 71260; 36415; Q9967

== ENCOUNTER → 2023-03-10 | Outpatient (CLI) | payer MEDICARE, OTHER ==
--- NOTE | 2023-03-11 10:35 | PE ---
EXAMINATION TYPE: PET CT fusion skull to thigh DATE OF EXAM: 03/10/2023 CLINICAL INDICATION:Male, 72 years old with history of C18.4 Colorectal ca; TECHNIQUE: Following the intravenous administration of 12.1 mCi of F-18 FDG, whole body images are performed from the skull base to the midthigh. Images are reviewed on the computer in the coronal, a xial, and sagittal planes. Reconstructed rotating images are created on independent workstation and reviewed on the computer. A non-contrast CT is performed in conjunction with the PET scan. Glucose level 111 mg/dL COMPARISON: CT 11/29/2022, PET/CT 09/22/2022, FINDINGS: Mediastinal SUV mean is 1.5. Hepatic parenchyma SUV mean is 2.0. SKULL BASE AND NECK: Right thyroid mass measures similarly at 3.3 x 1.7 cm with max SUV 56.6, previo usly 61.9, 67.2, this was previously biopsied. CHEST, MEDIASTINUM, AND HILAR REGION: Resolution of prior consolidation changes throughout the left l jovan. Scattered opacities are noted in the right upper lung as well. Resolution of prior mild increase d FDG activity max posteriorly laterally and anteriorly. ABDOMEN AND PELVIS: No suspicious FDG activity. No definitive evidence of lymphadenopathy or suspicio us FDG activity within the abdomen or pelvis. OSSEOUS STRUCTURES: No suspicious FDG activity. OTHER CT: Right chest [id number] with tip at the superior cavoatrial junction. Scattered airspace opacities and consolidation are seen throughout the prominent left lung. Fat-containing umbilical her rupesh. Scattered clonic diverticula. Atherosclerosis of the arterial vasculature for renal aortic aneur ysmal dilation up to 3.1 cm similar to prior's. IMPRESSION: 1. Resolution of findings within the lung suggesting infectious/inflammatory process on prior. 2. Persistent very avid right thyroid nodule similar in size. 3. No other suspicious FDG activity in the neck, thorax, abdomen or pelvis.
== END | disposition home or self-care (01) ==
LOC: RADPETMAIN 09:36
PROVIDERS: ATTEND Internal Medicine Hematology & Oncology
DX: C18.4 Malignant neoplasm of transverse colon (principal); E04.1 Nontoxic single thyroid nodule
CPT/HCPCS: 78815; A9552

== ENCOUNTER 2023-07-06 19:20 | Observation (INO) | payer MEDICARE, OTHER ==
--- NOTE | 2023-07-06 19:29 | ED ---
Syncope HPI - General Chief Complaint: Syncope Stated Complaint: Syncopal episode Time Seen by Provider: 07/06/23 19:24 Source: patient, RN notes reviewed, old records reviewed Mode of arrival: EMS Limitations: no limitations - History of Present Illness Initial Comments: This is a 72-year-old male to the ER today. Patient presents today for evaluation of a syncopal event. Patient syncopal event prior to arrival presents by EMS. Patient denies headache chest pain shortness of breath or current abdominal pain. Patient is concern for heart attack. She has no high blood pressure cholesterol diabetes nonsmoker. No travel history no sick contacts no other complaints. MD Complaint: loss of consciousness, collapsed -: hour(s) Prodromal Symptoms: lightheaded -: minutes(s) (5) Witnessed: yes - by bystander Injuries Sustained Associated with Event: None Current Symptoms: back to baseline Context: at rest Treatments Prior to Arrival: none - Related Data Home Medications Medication Instructions Recorded Confirmed traMADol HCL 50 mg PO Q6H PRN 05/12/22 07/07/23 Cetirizine HCl [Zyrtec] 10 mg PO DAILY 07/07/23 07/07/23 Previous Rx's Medication Instructions Recorded Lisinopril-Hctz 20-12.5 mg 1 tab PO DAILY #30 tab 07/09/23 [Zestoretic 20-12.5] Allergies Allergy/AdvReac Type Severity Reaction Status Date / Time No Known Allergies Allergy Verified 07/07/23 12:12 Review of Systems ROS Statement: Those systems with pertinent positive or pertinent negative responses have been documented in the HPI. ROS Other: All systems not noted in ROS Statement are negative. Past Medical History Past Medical History: Cancer, GERD/Reflux Additional Past Medical History / Comment(s): colon cancer. History of Any Multi-Drug Resistant Organisms: None Reported Past Surgical History: Hernia Repair Additional Past Surgical History / Comment(s): Colonoscopy, RIGHT INGUINAL HERNIA REPAIR Past Anesthesia/Blood Transfusion Reactions: No Reported Reaction, Family History of Problems w/ Anesthesia Additional Past Anesthesia/Blood Transfusion Reaction / Comment(s): Mother has analphylactic reaction to Novacaine. Past Psychological History: No Psychological Hx Reported Smoking Status: Never smoker Past Alcohol Use History: Rare Past Drug Use History: Marijuana - Past Family History Mother Family Medical History: Cancer General Exam Limitations: no limitations General appearance: alert, in no apparent distress, anxious Head exam: Present: atraumatic, normocephalic, normal inspection Eye exam: Present: normal appearance, PERRL, EOMI. Absent: scleral icterus, conjunctival injection, periorbital swelling ENT exam: Present: normal exam, mucous membranes moist Neck exam: Present: normal inspection. Absent: tenderness, meningismus, ly mphadenopathy Respiratory exam: Present: normal lung sounds bilaterally. Absent: respiratory distress, wheezes, rales, rhonchi, stridor Cardiovascular Exam: Present: regular rate, normal rhythm, normal heart sounds. Absent: systolic murmur, diastolic murmur, rubs, gallop, clicks GI/Abdominal exam: Present: soft, normal bowel sounds. Absent: distended, tenderness, guarding, rebound, rigid Extremities exam: Present: normal inspection, full ROM, normal capillary refill. Absent: tenderness, pedal edema, joint swelling, calf tenderness Back exam: Present: normal inspection Neurological exam: Present: alert, oriented X3, CN II-XII intact Psychiatric exam: Present: normal affect, normal mood Skin exam: Present: warm, dry, intact, normal color. 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 sent in by a medical professional or institution (, PA, INTERNAL MEDICINE PHYSICIAN ASSISTANT, urgent care, hospital, or penitentiary...) When possible be specific @ -no Did you speak to anyone other than the patient for history (EMS, parent, family, police, friend...)? What history was obtained from this source @ -no Did you review nursing and triage notes (agree or disagree)? Why? @ -agree Are old charts reviewed (outside hosp., previous admission, EMS record, old EKG, old radiological studies, urgent care reports/EKG's, penitentiary records)? Report findings @ -yes Differential Diagnosis (chest pain, altered mental status, abdominal pain women, abdominal pain men, vaginal bleeding, weakness, fever, dyspnea, syncope, headache, dizziness, GI bleed, back pain, seizure, CVA, palpatations, mental health, musculoskeletal)? @ -prior EKG interpreted by me (3pts min.). @ -yes X-rays interpreted by me (1pt min.). @ -no CT interpreted by me (1pt min.). @ -yes U/S interpreted by me (1pt. min.). @ -no What testing was considered but not performed or refused? (CT, X-rays, U/S, labs)? Why? @ -none What meds were considered but not given or refused? Why? @ -none Did you discuss the management of the patient with other professionals (professionals i.e. , PA, INTERNAL MEDICINE PHYSICIAN ASSISTANT, lab, RT, psych nurse, vp digital marketing social media and crm, plastics supervisor, teacher, ammunition officer, casework specialist)? Give summary @ -no Was smoking cessation discussed for >3mins.? @ -no Was critical care preformed (if so, how long)? @ -no Were there social determinants of health that impacted care today? How? (Homelessness, low income, unemployed, alcoholism, drug addiction, transportation, low edu. Level, literacy, decrease access to med. care, half-way, rehab)? @ -none Was there de-escalation of care discussed even if they declined (Discuss DNR or withdrawal of care, Hospice)? DNR status @ -no What co-morbidities impacted this encounter? (DM, HTN, Smoking, COPD, CAD, Cancer, CVA, ARF, Chemo, Hep., AIDS, mental health diagnosis, sleep apnea, morbid obesity)? @ -none Was patient admitted / discharged? Hospital course, mention meds given and route, prescriptions, significant lab abnormalities, going to OR and other pertinent info. @ - 72 male to the emergency department for evaluation. Patient presents today for evaluation of a syncopal event. Patient a positive syncopal event prior to arrival. No headache chest pain shortness breath or abdominal pain. Patient does have CT scanning showing negative for PE. Patient will be admitted for findings of causes of syncope Admitted Undiagnosed new problem with uncertain prognosis? @ -no Drug Therapy requiring intensive monitoring for toxicity (Heparin, Nitro, Insulin, Cardizem)? @ -no Were any procedures done? @ -no Diagnosis/symptom? @ -Syncope Acute, or Chronic, or Acute on Chronic? @ -Acute Uncomplicated (without systemic symptoms) or Complicated (systemic symptoms)? @ -Complicated Side effects of treatment? @ -no Exacerbation, Progression, or Severe Exacerbation? @ -exacerbation Poses a threat to life or bodily function? How? (Chest pain, USA, MN, pneumonia, PE, COPD, DKA, ARF, appy, cholecystitis, CVA, Diverticulitis, Homicidal, Suicidal, threat to staff... and all critical care pts) @ -yes cause of syncope can lead to mortality Reevaluation #5: 07/06/23 23:33 Differential Syncope: Valvular disease, hypertrophic cardiomyopathy, pulmonary embolism, tamponade, tachycardia, bradycardia, MN, hypovolemia, hemorrhage, dissection, anemia, intracranial hemorrhage, seizure, hypoglycemia, carbon monoxide poisoning, this is not meant to be an all-inclusive list. - Consultations Consultation #1: Spoke with admitting physicians who agreed to admit the patient EKG Findings - EKG Comments: EKG Findings:: EKG is sinus 62 MA 172 QRS 84 QTc 422 - EKG Results: EKG: interpreted by CALEB Medical Decision Making - Medical Decision Making 72 male to the emergency department for evaluation. Patient presents today for evaluation of a syncopal event. Patient a positive syncopal event prior to arrival. No headache chest pain shortness breath or abdominal pain. Patient does have CT scanning showing negative for PE. Patient will be admitted for findings of causes of syncope - Lab Data Result diagrams: 07/08/23 07:52 07/08/23 07:52 Lab Results 07/06/23 07/06/23 07/06/23 Range/Units 19:42 19:42 19:42 WBC 6.6 (3.8-10.6) k/uL RBC 4.41 (4.30-5.90) m/uL Hgb 13.6 (13.0-17.5) gm/dL Hct 41.4 (39.0-53.0) % MCV 93.7 (80.0-100.0) fL MCH 30.9 (25.0-35.0) pg MCHC 32.9 (31.0-37.0) g/dL RDW 13.2 (11.5-15.5) % Plt Count 202 (150-450) k/uL MPV 8.3 Neutrophils % 53 % Lymphocytes % 32 % Monocytes % 6 % Eosinophils % 6 % Basophils % 1 % Neutrophils # 3.5 (1.3-7.7) k/uL Lymphocytes # 2.1 (1.0-4.8) k/uL Monocytes # 0.4 (0-1.0) k/uL Eosinophils # 0.4 (0-0.7) k/uL Basophils # 0.0 (0-0.2) k/uL PT 10.2 (9.0-12.0) sec INR 1.0 (<1.2) APTT 23.0 (22.0-30.0) sec D-Dimer 1.19 H (<0.60) mg/L FEU Sodium 136 L (137-145) mmol/L Potassium 4.0 (3.5-5.1) mmol/L Chloride 109 H (98-107) mmol/L Carbon Dioxide 19 L (22-30) mmol/L Anion Gap 8 mmol/L BUN 16 (9-20) mg/dL Creatinine 1.23 (0.66-1.25) mg/dL Est GFR (CKD-EPI)AfAm 68 (>60 ml/min/1.73 sqM) Est GFR (CKD-EPI)NonAf 59 (>60 ml/min/1.73 sqM) Glucose 113 H (74-99) mg/dL Calcium 8.3 L (8.4-10.2) mg/dL Magnesium 2.0 (1.6-2.3) mg/dL Total Bilirubin 0.6 (0.2-1.3) mg/dL AST 29 (17-59) U/L ALT 29 (4-49) U/L Alkaline Phosphatase 58 (38-126) U/L Troponin I (0.000-0.034) ng/mL Total Protein 6.6 (6.3-8.2) g/dL Albumin 3.7 (3.5-5.0) g/dL 07/06/23 Range/Units 19:42 WBC (3.8-10.6) k/uL RBC (4.30-5.90) m/uL Hgb (13.0-17.5) gm/dL Hct (39.0-53.0) % MCV (80.0-100.0) fL MCH (25.0-35.0) pg MCHC (31.0-37.0) g/dL RDW (11.5-15.5) % Plt Count (150-450) k/uL MPV Neutrophils % % Lymphocytes % % Monocytes % % Eosinophils % % Basophils % % Neutrophils # (1.3-7.7) k/uL Lymphocytes # (1.0-4.8) k/uL Monocytes # (0-1.0) k/uL Eosinophils # (0-0.7) k/uL Basophils # (0-0.2) k/uL PT (9.0-12.0) sec INR (<1.2) APTT (22.0-30.0) sec D-Dimer (<0.60) mg/L FEU Sodium (137-145) mmol/L Potassium (3.5-5.1) mmol/L Chloride (98-107) mmol/L Carbon Dioxide (22-30) mmol/L Anion Gap mmol/L BUN (9-20) mg/dL Creatinine (0.66-1.25) mg/dL Est GFR (CKD-EPI)AfAm (>60 ml/min/1.73 sqM) Est GFR (CKD-EPI)NonAf (>60 ml/min/1.73 sqM) Glucose (74-99) mg/dL Calcium (8.4-10.2) mg/dL Magnesium (1.6-2.3) mg/dL Total Bilirubin (0.2-1.3) mg/dL AST (17-59) U/L ALT (4-49) U/L Alkaline Phosphatase (38-126) U/L Troponin I <0.012 (0.000-0.034) ng/mL Total Protein (6.3-8.2) g/dL Albumin (3.5-5.0) g/dL - EKG Data -: EKG Interpreted by Me - Radiology Data Radiology results: report reviewed (CT angios chest negative for PE), image reviewed Disposition Clinical Impression: Syncope Disposition: ADMITTED IP TO THIS [facility] Condition: Good Is patient prescribed a controlled substance at d/c from ED?: No Time of Disposition: 23:30
[2023-07-06] MEDS ORDERED: SODIUM CHLORIDE 0.9% 1,000 ML IV STA (19:41)
[2023-07-06 20:00] LABS: Basophils % (A) 1 %; Eosinophils # (A) 0.4 k/uL (0-0.7); Eosinophils % (A) 6 %; HCT 41.4 % (39.0-53.0); HGB 13.6 gm/dL (13.0-17.5); Lymphocytes # (A) 2.1 k/uL (1.0-4.8); Lymphocytes % (A) 32 %; MCH 30.9 pg (25.0-35.0); MCHC 32.9 g/dL (31.0-37.0); MCV 93.7 fL (80.0-100.0); Mean Platelet Volume 8.3; Monocytes # (A) 0.4 k/uL (0-1.0); Monocytes % (A) 6 %; Neutrophils # (A) 3.5 k/uL (1.3-7.7); Neutrophils % (A) 53 %; Platelet Count 202 k/uL (150-450); RBC 4.41 m/uL (4.30-5.90); RDW 13.2 % (11.5-15.5); WBC 6.6 k/uL (3.8-10.6)
[2023-07-06 20:05] LABS: ALT 29 U/L (4-49); AST 29 U/L (17-59); African American GFR (CKD) 68 (>60 ml/min/1.73 sqM); Albumin 3.7 g/dL (3.5-5.0); Alkaline Phosphatase 58 U/L (38-126); Anion Gap 8 mmol/L; Blood Urea Nitrogen 16 mg/dL (9-20); Calcium 8.3 mg/dL (8.4-10.2); Carbon Dioxide 19 mmol/L (22-30); Chloride 109 mmol/L (98-107); Glucose 113 mg/dL (74-99); Non-African American GFR(CKD) 59 (>60 ml/min/1.73 sqM); Sodium 136 mmol/L (137-145); Total Bilirubin 0.6 mg/dL (0.2-1.3); Total Protein 6.6 g/dL (6.3-8.2)
[2023-07-06 20:22] LABS: Prothrombin Time 10.2 sec (9.0-12.0)
[2023-07-06] MEDS ORDERED: SODIUM CHLORIDE 0.9% 500 ML 500 ML IV STA (21:53)
[2023-07-06] MEDS: SODIUM CHLORIDE 0.9% 1,000 ML IV SCH (22:02)
--- NOTE | 2023-07-06 23:28 | CT ---
EXAMINATION TYPE: CT angio chest CT DLP: 446 mGycm, Automated exposure control for dose reduction was used. DATE OF EXAM: 07/06/2023 10:16 PM COMPARISON: 11/29/2022, PET/CT 03/10/2023 CLINICAL INDICATION:Male, 72 years old with history of pe; TECHNIQUE/CONTRAST: CTA scan of the thorax is performed with IV Contrast, patient injected with 74 mL of Isovue 370, MIP images are created and reviewed these are created on a separate workstation.. FINDINGS: Pulmonary Artery: There is no evidence for a filling defect within the pulmonary vasculature to sugge st acute pulmonary embolism. The pulmonary artery is of normal size. Lungs/Pleura: No evidence of focal consolidation, pleural effusion or pneumothorax. Airway: Large airways are patent. Heart: Heart is within normal limits for size. Coronary artery calcifications are mild to moderate. Vasculature: No evidence of aortic aneurysm. Right central venous catheter tip in the superior vena c andrea. Mediastinum: No gross evidence of adenopathy. Musculoskeletal: No acute osseous abnormalities Soft Tissues: Unremarkable. Lower neck: No significant findings. Upper Abdomen: No significant findings. IMPRESSION: No evidence of pulmonary embolism.
[2023-07-06] MEDS ORDERED: NALOXONE 0.4 MG/ML 1 ML VIAL IV PRN (23:47)
[2023-07-07] MEDS: SODIUM CHLORIDE 0.9% 1,000 ML IV SCH ×3 (05:24→23:29)
--- NOTE | 2023-07-07 09:56 | P.CRDCN ---
History of Present Illness Consult date: 07/07/23 Chief complaint: syncope History of present illness: The patient is a pleasant 72-year-old gentleman with a past medical history significant for history of colon cancer currently in remission. The patient presented to the hospital after he had a witnessed syncopal episode. He was in his usual state of falls where he was sitting at home talking to his grandson when suddenly he lost his consciousness with no prodromal symptoms of any nausea or vomiting or any warmt feeling. No symptoms of any heart racing or fluttering. No symptoms of any chest pain or chest discomfort around episodes. He did have a history of syncope long time ago. The patient presented to the hospital where he underwent further evaluation including an EKG showing sinus mechanism was no ST changes besides sinus bradycardia and heart rate in the 50s. He is not on any AV gideon nisha agents. The first set of troponin came in to be unremarkable with a chest x-ray showed no acute abnormalities. The rest of the workup including CT a came in to be unremarkable for pulmonary embolism. No coronary artery disease or congestive heart failure or cardiac arrhythmia and the patient never seen by a medical bill processor before. The examination is remarkable for stable vital signs with sinus bradycardia and irregular rhythm with a soft systolic murmur and clear breathing sounds bilaterally. Assessment Syncopal episode when the patient was sitting was no prodromal symptoms Sinus bradycardia Plan Continue monitor the heart rate and mainly for sinus bradycardia Avoid any AV gideon nisha agents Obtain TSH and free T4 Obtain orthostatic blood pressure check Serial cardiac enzymes An echocardiogram was Doppler Follow-up with the patient Past Medical History Past Medical History: Cancer, GERD/Reflux Additional Past Medical History / Comment(s): colon cancer. History of Any Multi-Drug Resistant Organisms: None Reported Past Surgical History: Hernia Repair Additional Past Surgical History / Comment(s): Colonoscopy, RIGHT INGUINAL HERNIA REPAIR, right subclavian port used for autoimmune therapy every three weeks Past Anesthesia/Blood Transfusion Reactions: No Reported Reaction, Family History of Problems w/ Anesthesia Additional Past Anesthesia/Blood Transfusion Reaction / Comment(s): Mother has analphylactic reaction to Novacaine. Past Psychological History: No Psychological Hx Reported Smoking Status: Never smoker Past Alcohol Use History: Rare Additional Past Alcohol Use History / Comment(s): STARTED SMOKING AT AGE 61 Quit smoking 2017, smoked for 5 yrs cigars-2-3 per day. quit cigarettes in 1984 Past Drug Use History: Marijuana Additional Drug Use History / Comment(s): Medical marijuana, daily use. - Past Family History Mother Family Medical History: Cancer Medications and Allergies Home Medications Medication Instructions Recorded Confirmed Type traMADol HCL 1 tab PO TID PRN 05/12/22 05/23/22 History Allergies Allergy/AdvReac Type Severity Reaction Status Date / Time No Known Allergies Allergy Verified 05/23/22 13:47 Physical Exam Vitals: Vital Signs Temp Pulse Pulse Pulse Pulse Pulse Pulse 07/07/23 07:00 98.1 F 57 L 07/07/23 01:15 97.5 F L 58 L 63 54 L 07/07/23 00:00 79 07/06/23 19:27 61 07/06/23 19:22 97.8 F 62 Resp BP BP BP BP BP Pulse Ox 07/07/23 07:00 16 151/84 98 07/07/23 01:15 16 152/84 165/87 150/84 95 07/07/23 00:00 16 120/77 95 07/06/23 19:27 07/06/23 19:22 16 154/88 95 Intake and Output 07/06/23 07/07/23 07/07/23 22:59 06:59 14:59 Other: # Voids 1 Weight 88.451 kg 88.451 kg Results 07/06/23 19:42 07/06/23 19:42 Cardiac Enzymes 07/06/23 07/06/23 Range/Units 19:42 19:42 AST 29 (17-59) U/L Troponin I <0.012 (0.000-0.034) ng/mL Coagulation 07/06/23 Range/Units 19:42 PT 10.2 (9.0-12.0) sec APTT 23.0 (22.0-30.0) sec CBC 07/06/23 Range/Units 19:42 WBC 6.6 (3.8-10.6) k/uL RBC 4.41 (4.30-5.90) m/uL Hgb 13.6 (13.0-17.5) gm/dL Hct 41.4 (39.0-53.0) % Plt Count 202 (150-450) k/uL Comprehensive Metabolic Panel 07/06/23 Range/Units 19:42 Sodium 136 L (137-145) mmol/L Potassium 4.0 (3.5-5.1) mmol/L Chloride 109 H (98-107) mmol/L Carbon Dioxide 19 L (22-30) mmol/L BUN 16 (9-20) mg/dL Creatinine 1.23 (0.66-1.25) mg/dL Glucose 113 H (74-99) mg/dL Calcium 8.3 L (8.4-10.2) mg/dL AST 29 (17-59) U/L ALT 29 (4-49) U/L Alkaline Phosphatase 58 (38-126) U/L Total Protein 6.6 (6.3-8.2) g/dL Albumin 3.7 (3.5-5.0) g/dL Current Medications Generic Name Dose Route Start Last Admin Trade Name Freq PRN Reason Stop Dose Admin Sodium Chloride 1,000 mls @ 130 mls/hr 07/06/23 22:00 07/07/23 05:24 Saline 0.9% IV Not Given .[id number] [facility] Naloxone HCl 0.2 mg 07/06/23 23:47 Naloxone 0.4 Mg/Ml 1 Ml Vial IV Q2M PRN Opioid Reversal Intake and Output 07/06/23 07/07/23 07/07/23 22:59 06:59 14:59 Other: # Voids 1 Weight 88.451 kg 88.451 kg 07/06/23 19:42 07/06/23 19:42
[2023-07-07] MEDS ORDERED: traMADol 50 MG TAB PO PRN (12:49)
--- NOTE | 2023-07-07 18:44 | P.HPIM ---
History of Present Illness H&P Date: 07/07/23 Chief Complaint: Syncope 72-year-old male to the ER today. Patient presents today for evaluation of a syncopal event. Patient syncopal event prior to arrival presents by EMS. Patient denies headache chest pain shortness of breath or current abdominal pain. Patient is concern for heart attack. She has no high blood pressure cholesterol diabetes nonsmoker. No travel history no sick contacts no other complaints. MD Complaint: loss of consciousness, collapsed he underwent further evaluation including an EKG showing sinus mechanism was no ST changes besides sinus bradycardia and heart rate in the 50s. He is not on any AV gideon nisha agents. The first set of troponin came in to be unremarkable with a chest x-ray showed no acute abnormalities. The rest of the workup including CT a came in to be unremarkable for pulmonary embolism. No coronary artery disease or congestive heart failure or cardiac arrhythmia Review of Systems REVIEW OF SYSTEMS: CONSTITUTIONAL: No fever, no malaise, no fatigue. HEENT: No recent visual problems or hearing problems. Denied any sore throat. CARDIOVASCULAR: No chest pain, orthopnea, PND, no palpitations, no syncope. PULMONARY: No shortness of breath, no cough, no hemoptysis. GASTROINTESTINAL: No diarrhea, no nausea, no vomiting, no abdominal pain. NEUROLOGICAL: No headaches, no weakness, no numbness. HEMATOLOGICAL: Denies any bleeding or petechiae. GENITOURINARY: Denies any burning micturition, frequency, or urgency. MUSCULOSKELETAL/RHEUMATOLOGICAL: Denies any joint pain, swelling, or any muscle pain. ENDOCRINE: Denies any polyuria or polydipsia. The rest of the 14-point review of systems is negative. Past Medical History Past Medical History: Cancer, GERD/Reflux Additional Past Medical History / Comment(s): colon cancer. History of Any Multi-Drug Resistant Organisms: None Reported Past Surgical History: Hernia Repair Additional Past Surgical History / Comment(s): Colonoscopy, RIGHT INGUINAL HERNIA REPAIR, right subclavian port used for autoimmune therapy every three we eks Past Anesthesia/Blood Transfusion Reactions: No Reported Reaction, Family History of Problems w/ Anesthesia Additional Past Anesthesia/Blood Transfusion Reaction / Comment(s): Mother has analphylactic reaction to Novacaine. Past Psychological History: No Psychological Hx Reported Smoking Status: Never smoker Past Alcohol Use History: Rare Additional Past Alcohol Use History / Comment(s): STARTED SMOKING AT AGE 61 Quit smoking 2017, smoked for 5 yrs cigars-2-3 per day. quit cigarettes in 1984 Past Drug Use History: Marijuana Additional Drug Use History / Comment(s): Medical marijuana, daily use. - Past Family History Mother Family Medical History: Cancer Medications and Allergies Home Medications Medication Instructions Recorded Confirmed Type traMADol HCL 50 mg PO Q6H PRN 05/12/22 07/07/23 History Cetirizine HCl [Zyrtec] 10 mg PO DAILY 07/07/23 07/07/23 History Allergies Allergy/AdvReac Type Severity Reaction Status Date / Time No Known Allergies Allergy Verified 07/07/23 12:12 Physical Exam Vitals: Vital Signs Temp Pulse Pulse Pulse Pulse Pulse Pulse 07/07/23 11:35 70 82 72 07/07/23 07:00 98.1 F 57 L 07/07/23 01:15 97.5 F L 58 L 63 54 L 07/07/23 00:00 79 07/06/23 19:27 61 07/06/23 19:22 97.8 F 62 Resp BP BP BP BP BP Pulse Ox 07/07/23 11:35 143/79 169/84 171/71 07/07/23 07:00 16 151/84 98 07/07/23 01:15 16 152/84 165/87 150/84 95 07/07/23 00:00 16 120/77 95 07/06/23 19:27 07/06/23 19:22 16 154/88 95 Intake and Output 07/06/23 07/07/23 07/07/23 22:59 06:59 14:59 Other: # Voids 1 Weight 88.451 kg 88.451 kg PHYSICAL EXAMINATION: GENERAL: The patient is alert and oriented x3, not in any acute distress. Well developed, well nourished. HEENT: Pupils are round and equally reacting to light. EOMI. No scleral icterus. No conjunctival pallor. Normocephalic, atraumatic. No pharyngeal erythema. No thyromegaly. CARDIOVASCULAR: S1 and S2 present. No murmurs, rubs, or gallops. PULMONARY: Chest is clear to auscultation, no wheezing or crackles. ABDOMEN: Soft, nontender, nondistended, normoactive bowel sounds. No palpable organomegaly. MUSCULOSKELETAL: No joint swelling or deformity. EXTREMITIES: No cyanosis, clubbing, or pedal edema. NEUROLOGICAL: Gross neurological examination did not reveal any focal deficits. SKIN: No rashes. Results CBC & Chem 7: 07/06/23 19:42 07/06/23 19:42 Labs: Abnormal Lab Results - Last 24 Hours (Table) 07/06/23 07/06/23 Range/Units 19:42 19:42 D-Dimer 1.19 H (<0.60) mg/L FEU Sodium 136 L (137-145) mmol/L Chloride 109 H (98-107) mmol/L Carbon Dioxide 19 L (22-30) mmol/L Glucose 113 H (74-99) mg/dL Calcium 8.3 L (8.4-10.2) mg/dL Thrombosis Risk Factor Assmnt - Choose All That Apply Any of the Below Risk Factors Present?: Yes Each Factor Represents 1 point: Obesity (BMI >25) Other Risk Factors: Yes Each Risk Factor Represents 2 Points: Age 61-74 years Other congenital or acquired thrombophilia - If yes, enter type in comment: No Thrombosis Risk Factor Assessment Total Risk Factor Score: 3 Thrombosis Risk Factor Assessment Level: Moderate Risk Assessment and Plan Assessment: 1. Acute syncopal episode - Patient has been placed on telemetry; monitor EKG and trend troponin - Orthostatic vital signs every shift - 2-D echocardiogram is ordered and pending 2. Sinus bradycardia -- Patient has been evaluated by cardiology and recommending to continue to monitor heart rate for sinus bradycardia; avoid using AV gideon blocking agents - TSH and T4 are ordered 3. Elevated d-dimer; CTA chest was done to rule out PE which was unremarkable 4. Seasonal ALLERGIES; Zyrtec 10 mg daily 5. Chronic pain; tramadol 50 mg every 6 hours when necessary DVT prophylaxis; SCDs CODE STATUS; full code
[2023-07-08] MEDS: SODIUM CHLORIDE 0.9% 1,000 ML IV SCH ×3 (05:29→21:18)
[2023-07-08] MEDS: LORATADINE 10 MG TAB PO SCH (08:23)
[2023-07-08] MEDS ORDERED: hydrALAZINE HCL 20 MG/ML 1 ML VIAL IVP PRN (08:30)
[2023-07-08 08:43] LABS: Basophils % (A) 1 %; Eosinophils # (A) 0.4 k/uL (0-0.7); Eosinophils % (A) 7 %; HCT 43.7 % (39.0-53.0); HGB 14.5 gm/dL (13.0-17.5); Lymphocytes # (A) 1.7 k/uL (1.0-4.8); Lymphocytes % (A) 29 %; MCH 31.8 pg (25.0-35.0); MCHC 33.3 g/dL (31.0-37.0); MCV 95.5 fL (80.0-100.0); Mean Platelet Volume 8.5; Monocytes # (A) 0.4 k/uL (0-1.0); Monocytes % (A) 6 %; Neutrophils # (A) 3.3 k/uL (1.3-7.7); Neutrophils % (A) 55 %; Platelet Count 223 k/uL (150-450); RBC 4.58 m/uL (4.30-5.90); RDW 13.5 % (11.5-15.5)
--- NOTE | 2023-07-08 09:35 | P.CNNES ---
History of Present Illness Consult date: 07/07/23 Requesting physician: Mike Wilkins Reason for Consult: Syncope History of Present Illness: Patient is a 72-year-old male came to the hospital by ambulance yesterday at 7:20 PM for a syncopal spell. As per EMS flow sheet, when they arrived, patient was sitting in the chair in the backyard. Patient was alert and oriented 4, complaint of syncopal episode. Patient was pale, diaphoretic and had urinated on himself. Patient denied any chest pain, shortness of breath, nausea. Family mentioned that patient had a syncopal episode that lasted about 5 minutes. Patient admits to alcohol and marijuana use. Twelve-lead EKG revealed minimal elevation in V1, V2 and V3. Patient was convinced to be evaluated at the ER. Patient's vitals at the scene was blood pressure 157/94, pulse rate 69, respirations 16, saturation 93%. Blood test shows normal CBC, PT/PTT, sodium 136 potassium 4.0, normal renal functions. Hepatic panel is normal, troponin negative. EKG shows sinus rhythm. CT of the chest showed no evidence of pulmonary embolism. Patient had a PET/CT performed 03/11/2023, which revealed resolution of findings within the lungs suggesting infectious/inflammatory process on prior. Persistent very avid right thyroid nodule similar in size. No other suspicious FDG activity in the neck, thorax, abdomen or pelvis. Patient at this time states that his grandson came over and they went to the backyard, and they were standing, talking for about 15-20 minutes before his legs felt tired, uncomfortable and he wanted to sit. [facility] went [facility] where he sat down whereas patient's grandson was standing. He believes that while talking, he just fell asleep and dozed off. I spoke to patient's grandson on the phone, who mentioned that while he was sitting, talking, patient suddenly did not make sense and then passed out was not breathing. His head was flexed on his chest and nose was draining. He shook a little and was not answering, not responding. He was out for about 5 minutes. Patient's grandson called 911, who told him to have him lean backwards and then his breathing improved and he started waking up. Patient grandson mentioned that patient did lose control of urine with this spell. Patient says that he has history of a syncopal spell at age 24 when he was at his friend's house talking, felt hot, walked to the door and fell backwards and passed out. No seizure. Patient admits to drinking light beer 3-5 per day every day since age 41. He admits to drinking 2 beers on the day of admission. He was not withdrawing. Patient also smoked 1 pack per day from age 14, until he quit at age 36. Patient also has been diagnosed with stage II colon cancer for which he had undergone surgery, chemotherapy for 4-1/2 months and now getting immunotherapy with keytruda. Review of Systems Constitutional: Denies chills, Denies fever Eyes: denies blurred vision, denies pain Ears: deny: decreased hearing, tinnitus Ears, nose, mouth and throat: Denies headache, Denies sore throat Cardiovascular: Reports dyspnea on exertion (Sometimes), Denies chest pain, Denies shortness of breath (Once in a while ) Respiratory: Reports cough, Reports excessive sputum Gastrointestinal: Reports diarrhea (Sometimes), Denies abdominal pain, Denies nausea, Denies vomiting Musculoskeletal: Reports low back pain, Denies myalgias, Denies neck pain Integumentary: Denies pruritus, Denies rash Neurological: Reports as per HPI Psychiatric: Denies anxiety, Denies depression, Denies memory loss Endocrine: Denies fatigue, Denies weight change Hematologic/Lymphatic: Denies easy bleeding, Denies easy bruising Past Medical History Past Medical History: Cancer, GERD/Reflux Additional Past Medical History / Comment(s): colon cancer. History of Any Multi-Drug Resistant Organisms: None Reported Past Surgical History: Hernia Repair Additional Past Surgical History / Comment(s): Colonoscopy, RIGHT INGUINAL HERNIA REPAIR, right subclavian port used for autoimmune therapy every three weeks Past Anesthesia/Blood Transfusion Reactions: No Reported Reaction, Family History of Problems w/ Anesthesia Additional Past Anesthesia/Blood Transfusion Reaction / Comment(s): Mother has analphylactic reaction to Novacaine. Past Psychological History: No Psychological Hx Reported Smoking Status: Never smoker Past Alcohol Use History: Rare Additional Past Alcohol Use History / Comment(s): STARTED SMOKING AT AGE 61 Quit smoking 2017, smoked for 5 yrs cigars-2-3 per day. quit cigarettes in 1984 Past Drug Use History: Marijuana Additional Drug Use History / Comment(s): Medical marijuana, daily use. - Past Family History Mother Family Medical History: Cancer Medications and Allergies Home Medications Medication Instructions Recorded Confirmed Type traMADol HCL 50 mg PO Q6H PRN 05/12/22 07/07/23 History Cetirizine HCl [Zyrtec] 10 mg PO DAILY 07/07/23 07/07/23 History Allergies Allergy/AdvReac Type Severity Reaction Status Date / Time No Known Allergies Allergy Verified 07/07/23 12:12 Physical Examination - Vital Signs Vital Signs: Vital Signs Temp Pulse Pulse Pulse Pulse Pulse Pulse 07/07/23 07:00 98.1 F 57 L 07/07/23 01:15 97.5 F L 58 L 63 54 L 07/07/23 00:00 79 07/06/23 19:27 61 07/06/23 19:22 97.8 F 62 Resp BP BP BP BP BP Pulse Ox 07/07/23 07:00 16 151/84 98 07/07/23 01:15 16 152/84 165/87 150/84 95 07/07/23 00:00 16 120/77 95 07/06/23 19:27 07/06/23 19:22 16 154/88 95 Intake and Output 07/06/23 07/07/23 07/07/23 22:59 06:59 14:59 Other: # Voids 1 Weight 88.451 kg 88.451 kg Patient is an elderly male, very pleasant, in no acute distress. Patient is alert awake oriented to time place and person. Speech and language functions are normal. Patient can name and repeat very well. No aphasia or dysarthria. Attention, concentration and fund of knowledge is adequate. On cranial nerve examination, pupils are equal, round and reacting to light, visual velasquez are full on confrontation, with no neglect on double simultaneous stimulation. Extraocular muscles are intact with no nystagmus. Face is symmetric, tongue protrudes to the midline. Palatal elevation and sensation normal, hearing and shoulder shrug normal, facial sensation normal. No evidence of tongue bite young. On muscle strength testing, there is no pronator drift and the strength is normal in arms and legs distally and proximally. Deep tendon reflexes are symmetric to all over at the biceps, brachioradialis, 2+ at the knees, 2 ankles and plantars downgoing bilaterally. Sensory to touch is equal with no neglect on double simultaneous stimulation. Cerebellar function showed mild tremors for [id number] testing bilaterally, but no ataxia. No dysdiadochokinesia. No ataxia for [id number] testing on either side. Tone and bulk of muscles normal. Patient has very mild tremors for outstretched hands. Gait deferred.. On general examination, there is no carotid bruit or murmur, S1-S2 audible. Chest is clear on consultation. Abdomen is soft nontender. No organomegaly, bowel sounds present. Peripheral pulses are present. No edema. Results - Laboratory Findings CBC and BMP: 07/08/23 07:52 07/06/23 19:42 Abnormal Lab Findings: Abnormal Labs 07/06/23 07/06/23 19:42 19:42 D-Dimer 1.19 H Sodium 136 L Chloride 109 H Carbon Dioxide 19 L Glucose 113 H Calcium 8.3 L Assessment and Plan Assessment: * Syncopal spell versus seizure, patient did lose control of urine. * History of syncopal spell at age 24. * Alcohol and marijuana use. * History of colon cancer, in remission. Plan: * Patient needs syncopal workup. * We will check carotid Doppler to rule out stenosis * EEG rule out epileptiform activity. * 2-D echo has been completed, results pending. * Orthostatics were checked, and apparently negative. Supine blood pressure 189/103, pulse rate 59, sitting blood pressure 192/101, pulse rate 57 and standing 184/105 and 65. Patient does have hypertension, cardiology on board. * Patient informed of [place] state law of no driving unless seizure/syncopal free for 6 months, climbing ladders, operate dangerous machinery or unsupervised swimming. * Neurology will follow. Thank you for the consult.
--- NOTE | 2023-07-08 10:26 | US ---
EXAMINATION TYPE: US carotid duplex BILAT DATE OF EXAM: 07/08/2023 COMPARISON: NONE CLINICAL INDICATION: Male, 72 years old with history of Syncope vs seizure; syncope TECHNIQUE: Carotid duplex ultrasound examination. Indirect Doppler criteria was utilized. FINDINGS: EXAM MEASUREMENTS: RIGHT: Peak Systolic Velocity (PSV) cm/sec ----- Right CCA: 142 ----- Right ICA: 245 ----- Right ECA: 184 ICA/CCA ratio: 1.7 RIGHT: End Diastole cm/sec ----- Right CCA: 17.2 ----- Right ICA: 24.2 ----- Right ECA: 21.7 LEFT: Peak Systolic Velocity (PSV) cm/sec ----- Left CCA: 115 ----- Left ICA: 101 ----- Left ECA: 155 ICA/CCA ratio: 0.9 LEFT: End Diastole cm/sec ----- Left CCA: 13.8 ----- Left ICA: 19.5 ----- Left ECA: 16.1 VERTEBRALS (direction of flow): Right Vertebral: Antegrade Left Vertebral: Antegrade Rhythm: Normal Mild atherosclerotic plaque within both carotid bulbs. IMPRESSION: 1. Approximately 70% stenosis of the origin of the right internal carotid artery secondary to calcif ied plaque based on peak systolic velocity. 2. No hemodynamically significant stenosis of the left internal carotid artery. Criteria for Assigning % of Stenosis / Diameter reduction (Estimation based on the indirect measurements of the internal carotid artery velocities (ICA PSV). 1. Normal (no stenosis)=ICA PSV < 125 cm/s: ratio < 2.0: ICA EDV<40 cm/s. 2. Less than 50% stenosis=ICA PSV < 125 cm/s: ratio < 2.0: ICA EDV<40 cm/s. 3. 50 to 69% stenosis=ICA PSV of 125 to 230 cm/s: ration 2.0 ? 4.0: ICA EDV 40-100 cm/s. 4. Greater than 70% stenosis to near occlusion= ICA PSV > 230 cm/s: ratio > 4.0: ICA EDV > 100 cm/s. 5. Near occlusion= ICA PSV velocities may be low or undetectable: variable ratio and ICA EDV. 6. Total occlusion=unable to detect flow.
[2023-07-08 10:28] LABS: African American GFR (CKD) >90 (>60 ml/min/1.73 sqM); Anion Gap 7 mmol/L; Blood Urea Nitrogen 10 mg/dL (9-20); Calcium 8.4 mg/dL (8.4-10.2); Carbon Dioxide 25 mmol/L (22-30); Chloride 109 mmol/L (98-107); Glucose 92 mg/dL (74-99); Non-African American GFR(CKD) 81 (>60 ml/min/1.73 sqM); Potassium 4.1 mmol/L (3.5-5.1); Sodium 141 mmol/L (137-145)
[2023-07-08] MEDS ORDERED: lisinopriL 5 MG TAB PO SCH (11:15)
--- NOTE | 2023-07-08 11:46 | P.PN ---
Subjective Progress Note Date: 07/08/23 Principal diagnosis: Syncope The patient is a pleasant 72-year-old gentleman with a past medical history significant for history of colon cancer currently in remission. The patient presented to the hospital after he had a witnessed syncopal episode. He was in his usual state of [place] where he was sitting at home talking to his grandson when suddenly he lost his consciousness with no prodromal symptoms of any nausea or vomiting or any warmt feeling. No symptoms of any heart racing or fluttering. No symptoms of any chest pain or chest discomfort around episodes. He did have a history of syncope long time ago. The patient presented to the hospital where he underwent further evaluation including an EKG showing sinus mechanism was no ST changes besides sinus bradycardia and heart rate in the 50s. He is not on any AV gideon nisha agents. The first set of troponin came in to be unremarkable with a chest x-ray showed no acute abnormalities. The rest of the workup including CT a came in to be unremarkable for pulmonary embolism. No coronary artery disease or congestive heart failure or cardiac arrhythmia and the patient never seen by a cylinder press operator before. The examination is remarkable for stable vital signs with sinus bradycardia and irregular rhythm with a soft systolic murmur and clear breathing sounds bilaterally. July 082022 The patient was seen and evaluated this morning. He is asymptomatic at this point. The pressure has been severely elevated and consistent was hypertension crisis. I am going to substitute lisinopril 5 mg daily with lisinopril/hydrochlorothiazide. He underwent further workup yesterday including cardiac enzymes came in to be unremarkable and also TSH and free T4 came in to be unremarkable. The echo is still pending. Orthostatic blood pressure check came in to be unremarkable. The examination is remarkable for regular rhythm and soft systolic murmur and clear breathing sounds bilaterally and no lower extremity edema Assessment Syncopal episode when the patient was sitting was no prodromal symptoms Sinus bradycardia Plan Follow up on the echocardiogram which was performed earlier Consider medical treatment for the carotid atherosclerosis which I think is an elevated to the syncopal episode Replace lisinopril with lisinopril/hydrochlorothiazide combination Follow-up with the patient Objective - Vital Signs Vital signs: Vital Signs Temp 97.7 F 07/08/23 08:00 Pulse 71 07/08/23 09:57 Resp 13 07/08/23 02:15 BP 157/76 07/08/23 09:57 Pulse Ox 98 07/08/23 09:12 FiO2 Intake & Output 07/07/23 07/08/23 07/08/23 18:59 06:59 18:59 Intake Total 118 Balance 118 Intake: Oral 118 Other: # Voids 3 1 # Bowel Movements 1 - Labs CBC & Chem 7: 07/08/23 07:52 07/08/23 07:52 Labs: Abnormal Lab Results - Last 24 Hours (Table) 07/08/23 Range/Units 07:52 Chloride 109 H (98-107) mmol/L
[2023-07-08] MEDS: LISINOPRIL-HCTZ 10-12.5 MG 1 EACH TAB PO SCH (12:45)
--- NOTE | 2023-07-08 13:49 | CA ---
Transthoracic Echo Report Name: Jaret Cameron Age: 72 Gender: M : 1950 Exam Date: 07/07/2023 11:28 Exam Location: [facility] Ht (in): 69 Wt (lb): 195 Ordering Physician: Chacho Herman MD ([id number]) Attending/Referring Phys: Long Distance Operator Yarelis Cazares RDCS Procedure CPT: Indications: Syncope Cardiac Hx: Technical Quality: Good Contrast 1: Total Dose (mL): Contrast 2: Total Dose (mL): MEASUREMENTS (Male / Female) Normal Values 2D ECHO LV Diastolic Diameter PLAX 4.6 cm 4.2 - 5.9 / 3.9 - 5.3 cm LV Systolic Diameter PLAX 3.0 cm IVS Diastolic Thickness 1.4 cm 0.6 - 1.0 / 0.6 - 0.9 cm LVPW Diastolic Thickness 1.4 cm 0.6 - 1.0 / 0.6 - 0.9 cm LV Relative Wall Thickness 0.6 RV Internal Dim ED PLAX 3.6 cm LA Systolic Diameter LX 3.6 cm 3.0 - 4.0 / 2.7 - 3.8 cm LV Diastolic Volume MOD BP 76.3 cm??? 67 - 155 / 56 - 104 cm??? LV Systolic Volume MOD BP 28.5 cm??? - 58 / 19 - 49 cm??? LV Ejection Fraction MOD BP 62.6 % >= 55 % LV Cardiac Index MOD BP 1480.6 cm???/min???m??? LV Diastolic Volume MOD 4C 86.4 cm??? LV Systolic Volume MOD 4C 24.5 cm??? LV Ejection Fraction MOD 4C 71.6 % LV Cardiac Index MOD 4C 1920.4 cm???/min???m??? LV Diastolic Length 4C 8.2 cm LV Systolic Length 4C 6.6 cm LV Diastolic Volume MOD 2C 63.8 cm??? LV Systolic Volume MOD 2C 35.6 cm??? LV Ejection Fraction MOD 2C 44.1 % LV Cardiac Index MOD 2C 873.6 cm???/min???m??? LV Diastolic Length 2C 7.5 cm LV Systolic Length 2C 6.9 cm LA Volume 78.6 cm??? 18 - 58 / 22 - 52 cm??? M-MODE Aortic Root Diameter MM 3.5 cm MV E Point Septal Separation 0.6 cm AV Cusp Separation MM 2.3 cm DOPPLER AV Peak Velocity 217.6 cm/s AV Peak Gradient 18.9 mmHg AV Mean Velocity 127.8 cm/s AV Mean Gradient 7.6 mmHg AV Velocity Time Integral 42.8 cm LVOT Peak Velocity 138.7 cm/s LVOT Peak Gradient 7.7 mmHg MV Area PHT 3.0 cm??? Mitral E Point Velocity 104.1 cm/s Mitral A Point Velocity 125.3 cm/s Mitral E to A Ratio 0.8 MV Deceleration Time 253.6 ms MV E' Velocity 7.9 cm/s Mitral E to MV E' Ratio 13.1 TR Peak Velocity 262.3 cm/s TR Peak Gradient 27.5 mmHg Right Ventricular Systolic Press 32.3 mmHg FINDINGS Left Ventricle Left ventricular ejection fraction is estimated at 50-55 %. Left ventricular cavity size normal. Moderate concentric left ventricular hypertrophy. Right Ventricle Mild right ventricular dilatation. Right ventricular systolic pressure within normal limits. Right Atrium Normal right atrial size. Left Atrium Moderately increased left atrial volume. Mildly increased left atrial area. Mitral Valve Mitral valve thickened. Mild mitral regurgitation. Aortic Valve Trileaflet aortic valve. Aortic valve sclerosis. Mild aortic stenosis with a peak gradient of 19 mmHg and a mean gradient of 8 mmHg. Tricuspid Valve Structurally normal tricuspid valve. Mild tricuspid regurgitation. Pulmonic Valve Pulmonic valve not well visualized. Pericardium No pericardial effusion. Aorta Normal size aortic root and proximal ascending aorta. CONCLUSIONS Normal LV systolic function Mild RV predilatation was normal function Mild aortic stenosis Previewed by: Dr. Chacho Herman MD (Electronically Signed) Final Date: 08 July 2023 13:48
[2023-07-08 15:04] VITALS: RESP 16
--- NOTE | 2023-07-08 22:07 | P.PN ---
Subjective Progress Note Date: 07/08/23 72-year-old male to the ER today. Patient presents today for evaluation of a syncopal event. Patient syncopal event prior to arrival presents by EMS. Patient denies headache chest pain shortness of breath or current abdominal pain. Patient is concern for heart attack. She has no high blood pressure c holesterol diabetes nonsmoker. No travel history no sick contacts no other complaints. MD Complaint: loss of consciousness, collapsed he underwent further evaluation including an EKG showing sinus mechanism was no ST changes besides sinus bradycardia and heart rate in the 50s. He is not on any AV gideon nisha agents. The first set of troponin came in to be unremarkable with a chest x-ray showed no acute abnormalities. The rest of the workup including CT a came in to be unremarkable for pulmonary embolism. No coronary artery disease or congestive heart failure or cardiac arrhythmia --Carotid US reveals R ICA stenosis- 70%; will consult Vascular sx Neurology recommending further workup with EEG BP remains markedly elevated- will add Lisinopril/HCTZ per cardiology recs Objective - Vital Signs Vital signs: Vital Signs Temp 97.7 F 07/08/23 08:00 Pulse 71 07/08/23 09:57 Resp 13 07/08/23 02:15 BP 157/76 07/08/23 09:57 Pulse Ox 98 07/08/23 09:12 FiO2 Intake & Output 07/07/23 07/08/23 07/08/23 18:59 06:59 18:59 Intake Total 118 Balance 118 Intake: Oral 118 Other: # Voids 3 1 # Bowel Movements 1 - Exam GENERAL: The patient is alert and oriented x3, not in any acute distress. Well developed, well nourished. HEENT: Pupils are round and equally reacting to light. EOMI. No scleral icterus. No conjunctival pallor. Normocephalic, atraumatic. No pharyngeal erythema. No thyromegaly. CARDIOVASCULAR: S1 and S2 present. No murmurs, rubs, or gallops. PULMONARY: Chest is clear to auscultation, no wheezing or crackles. ABDOMEN: Soft, nontender, nondistended, normoactive bowel sounds. No palpable organomegaly. MUSCULOSKELETAL: No joint swelling or deformity. EXTREMITIES: No cyanosis, clubbing, or pedal edema. NEUROLOGICAL: Gross neurological examination did not reveal any focal deficits. SKIN: No rashes. - Labs CBC & Chem 7: 07/08/23 07:52 07/08/23 07:52 Labs: Abnormal Lab Results - Last 24 Hours (Table) 07/08/23 Range/Units 07:52 Chloride 109 H (98-107) mmol/L Assessment and Plan Assessment: 1. Acute syncopal episode - Patient has been placed on telemetry; monitor EKG and trend troponin - Orthostatic vital signs every shift - 2-D echocardiogram is ordered and pending 2. Sinus bradycardia -- Patient has been evaluated by cardiology and recommending to continue to monitor heart rate for sinus bradycardia; avoid using AV gideon blocking agents - TSH and T4 are ordered 3. Elevated d-dimer; CTA chest was done to rule out PE which was unremarkable 4. Seasonal ALLERGIES; Zyrtec 10 mg daily 5. Chronic pain; tramadol 50 mg every 6 hours when necessary DVT prophylaxis; SCDs CODE STATUS; full code
[2023-07-09] MEDS: SODIUM CHLORIDE 0.9% 1,000 ML IV SCH ×2 (05:06→08:29)
[2023-07-09] MEDS ORDERED: SODIUM CHLORIDE 0.9% 1,000 ML IV SCH (08:15)
[2023-07-09] MEDS: LORATADINE 10 MG TAB PO SCH (08:29)
[2023-07-09] MEDS: LISINOPRIL-HCTZ 10-12.5 MG 1 EACH TAB PO SCH (08:29)
--- NOTE | 2023-07-09 09:59 | P.PN ---
Subjective Progress Note Date: 07/09/23 Syncope The patient is a pleasant 72-year-old gentleman with a past medical history significant for history of colon cancer currently in remission. The patient presented to the hospital after he had a witnessed syncopal episode. He was in his usual state of [place] where he was sitting at home talking to his grandson when suddenly he lost his consciousness with no prodromal symptoms of any nausea or vomiting or any warmt feeling. No symptoms of any heart racing or fluttering. No symptoms of any chest pain or chest discomfort around episodes. He did have a history of syncope long time ago. The patient presented to the hospital where he underwent further evaluation including an EKG showing sinus mechanism was no ST changes besides sinus bradycardia and heart rate in the 50s. He is not on any AV gideon nisha agents. The first set of troponin came in to be unremarkable with a chest x-ray showed no acute abnormalities. The rest of the workup including CT a came in to be unremarkable for pulmonary embolism. No coronary artery disease or congestive heart failure or cardiac arrhythmia and the patient never seen by a c.o.d. biller before. The examination is remarkable for stable vital signs with sinus bradycardia and irregular rhythm with a soft systolic murmur and clear breathing sounds bilaterally. July 082022 The patient was seen and evaluated this morning. He is asymptomatic at this point. The pressure has been severely elevated and consistent was hypertension crisis. I am going to substitute lisinopril 5 mg daily with lisinopril/hydrochlorothiazide. He underwent further workup yesterday including cardiac enzymes came in to be unremarkable and also TSH and free T4 came in to be unremarkable. The echo is still pending. Orthostatic blood pressure check came in to be unremarkable. 07/09 Patient is seen today in followup. Yesterday, patient was started on lis iniopril/HCTZ for better BP control. BP Now 167/92. Patient describes previous episodes of syncope with the first one occurring when he was in his early 20s. He had another episode in 2015 while he was working outside for 4 hours in [place]. Prior to this recent episode, patient had fatigue but no palpitations and he felt fine immediately afterwards. Echocardiogram reveals normal LV systolic function. Mild RV free debilitation was normal function, mild aortic stenosis. The examination is remarkable for regular rhythm and soft systolic murmur and clear breathing sounds bilaterally and no lower extremity edema Assessment Syncopal episode when the patient was sitting was no prodromal symptoms Sinus bradycardia Mild aortic stenosis Plan Follow up on the echocardiogram which was performed earlier Consider medical treatment for the carotid atherosclerosis which I think is an elevated to the syncopal episode Continue lisinopril/hydrochlorothiazide combination Schedule patient for tilt table test today Follow-up with the patient Nurse practitioner note has been reviewed, I agree with the documented findings and plan of care. Patient was seen and examined. Objective - Vital Signs Vital signs: Vital Signs Temp 98.0 F 07/09/23 02:26 Pulse 59 L 07/09/23 02:26 Resp 16 07/09/23 02:26 BP 177/93 07/09/23 02:26 Pulse Ox 97 07/09/23 02:26 FiO2 Intake & Output 07/08/23 07/09/23 07/09/23 18:59 06:59 18:59 Intake Total 709 Balance 709 Intake: Oral 709 Other: Voiding Method Toilet # Voids 2 2 - Labs CBC & Chem 7: 07/08/23 07:52 07/08/23 07:52 Labs: Abnormal Lab Results - Last 24 Hours (Table) 07/08/23 Range/Units 07:52 Chloride 109 H (98-107) mmol/L
[2023-07-09] MEDS ORDERED: SODIUM CHLORIDE 0.9% 500 ML 500 ML IV ONE (10:10)
--- NOTE | 2023-07-09 10:46 | P.PN ---
Subjective Progress Note Date: 07/08/23 Patient was seen for a follow-up. No further syncopal spells. Patient appears comfortable. Awaiting further testing. Objective - Vital Signs Vital signs: Vital Signs Temp 97.7 F 07/08/23 08:00 Pulse 83 07/08/23 12:26 Resp 13 07/08/23 02:15 BP 152/83 07/08/23 12:26 Pulse Ox 98 07/08/23 09:12 FiO2 Intake & Output 07/07/23 07/08/23 07/08/23 18:59 06:59 18:59 Intake Total 118 Balance 118 Intake: Oral 118 Other: # Voids 3 1 # Bowel Movements 1 - Exam Examination unchanged. Patient is sitting comfortably in the recliner. - Labs CBC & Chem 7: 07/08/23 07:52 07/08/23 07:52 Labs: Abnormal Lab Results - Last 24 Hours (Table) 07/08/23 Range/Units 07:52 Chloride 109 H (98-107) mmol/L Assessment and Plan Assessment: * Syncopal spell versus seizure, patient did lose control of urine. * History of syncopal spell at age 24. * Alcohol and marijuana use. * History of colon cancer, in remission. Plan: * Patient needs syncopal workup. * Carotid Doppler revealed approximately 70% stenosis of the origin of the right ICA secondary to calcified plaque. Antegrade flow in both vertebral arteries. Vascular surgery has been consulted. * EEG rule out epileptiform activity. * 2-D echo revealed normal left ventricular systolic function with EF 50-55%. Mild aortic stenosis. Moderately increased left atrial volume. * Orthostatics were checked, and apparently negative. Supine blood pressure 189/103, pulse rate 59, sitting blood pressure 192/101, pulse rate 57 and standing 184/105 and 65. Patient does have hypertension, cardiology on board. * Patient informed of [place] state law of no driving unless seizure/syncopal free for 6 months, climbing ladders, operate dangerous machinery or unsupervised swimming.
--- NOTE | 2023-07-09 11:30 | P.DS ---
Providers Date of admission: 07/06/23 23:48 Attending physician: Cr Gilman MD Consults: 07/06/23 23:47 Consult Physician Routine Consulting Provider: Tulio Burris Consult Reason/Comments: syncope Do you want consulting provider notified?: Yes, Notify in am Consult Physician Routine Consulting Provider: [facility] Consult Reason/Comments: syncope Do you want consulting provider notified?: Yes, Notify in am 07/08/23 11:07 Consult Physician Routine Consulting Provider: Orlando Sofia Consult Reason/Comments: R ICA stenosis Do you want consulting provider notified?: Yes Primary care physician: Stated None Hospital Course: Patient presented with syncopal episodes patient underwent extensive evaluation including echocardiogram, which was within normal limits carotid ultrasound that really revealed 70% stenosis in the right ICA. Patient is undergoing tilt table testing. Neurology is also recommending EEG and if these 2 tests are negative patient will be discharged today and patient was started on lisinopril hydrochlorothiazide because of the elevated blood pressures. Blood pressures are still high patient may need a higher dose of this medication. PHYSICAL EXAMINATION: GENERAL: The patient is alert and oriented x3, not in any acute distress. Well developed, well nourished. HEENT: Pupils are round and equally reacting to light. EOMI. No scleral icterus. No conjunctival pallor. Normocephalic, atraumatic. No pharyngeal erythema. No thyromegaly. CARDIOVASCULAR: S1 and S2 present. No murmurs, rubs, or gallops. PULMONARY: Chest is clear to auscultation, no wheezing or crackles. ABDOMEN: Soft, nontender, nondistended, normoactive bowel sounds. No palpable organomegaly. MUSCULOSKELETAL: No joint swelling or deformity. EXTREMITIES: No cyanosis, clubbing, or pedal edema. NEUROLOGICAL: Gross neurological examination did not reveal any focal deficits. SKIN: No rashes. Assessment and plan 1. Acute syncopal episode: Extensive evaluation as mentioned above pending the EEG and the tilt table testing. Rest of the workup as discussed above 2. Sinus bradycardia --May not have contributed to her syncope, a widely V gideon blocking agents - TSH and T4 are within normal limits 3. Elevated d-dimer; CTA chest was done to rule out PE which was unremarkable 4. Seasonal ALLERGIES; Zyrtec 10 mg daily Patient will be discharged today if there is no syncope and abnormality on EEG or tilt table testing Patient Condition at Discharge: Fair Plan - Discharge Summary Discharge Rx Participant: No New Discharge Prescriptions: New Lisinopril-Hctz 10-12.5 mg [Zestoretic 10-12.5] 1 each PO DAILY #30 tab Continue traMADol HCL 50 mg PO Q6H PRN PRN Reason: Pain Cetirizine HCl [Zyrtec] 10 mg PO DAILY Discharge Medication List traMADol HCL 50 mg PO Q6H PRN 05/12/22 [History] Cetirizine HCl [Zyrtec] 10 mg PO DAILY 07/07/23 [History] Lisinopril-Hctz 10-12.5 mg [Zestoretic 10-12.5] 1 each PO DAILY #30 tab 07/09/23 [Rx] Follow up Appointment(s)/Referral(s): Chacho Herman MD [STAFF PHYSICIAN] - 3 Days None,Stated [Primary Care Provider] - 1-2 days Patient Instructions/Handouts: Syncope (DC) Discharge Disposition: HOME SELF-CARE
--- NOTE | 2023-07-09 12:10 | P.GSCN ---
History of Present Illness History of present illness: 72-year-old pleasant gentleman who came in to the emergency room with history of syncopal attack patient had a cardiac and neuro consult consulted for right carotid 70% stenosis. Patient has no history of TIA or embolus feebleness no history of diabetes hypertension no history of coronary artery disease patient had a ejection fraction of 55-650% area of surgical history patient had a CT of the colon patient had a colectomy done in the past patient under care of Dr. Rose he is on immunotherapy in no history of smoking but he smokes marijuana Neck is supple no bruit appreciated Chest is clear good and both lungs first and second sound normal Abdomen soft nontender Vascular bruits brachial radial femoral pulses are present patient has a normal motor function up lower extremity Incidental finding of 70% stenosis From surgical point of view patient stable discussed with the family Anibal and the patient will follow-up in the office in 1 month Past Medical History Past Medical History: Cancer, GERD/Reflux Additional Past Medical History / Comment(s): colon cancer. History of Any Multi-Drug Resistant Organisms: None Reported Past Surgical History: Hernia Repair Additional Past Surgical History / Comment(s): Colonoscopy, RIGHT INGUINAL HERNIA REPAIR, right subclavian port used for autoimmune therapy every three weeks Past Anesthesia/Blood Transfusion Reactions: No Reported Reaction, Family History of Problems w/ Anesthesia Additional Past Anesthesia/Blood Transfusion Reaction / Comm: Mother has analphylactic reaction to Novacaine. Past Psychological History: No Psychological Hx Reported Smoking Status: Never smoker Past Alcohol Use History: Rare Additional Past Alcohol Use History / Comment(s): STARTED SMOKING AT AGE 61 Quit smoking 2017, smoked for 5 yrs cigars-2-3 per day. quit cigarettes in 1984 Past Drug Use History: Marijuana Additional Drug Use History / Comment(s): Medical marijuana, daily use. - Past Family History Mother Family Medical History: Cancer Medications and Allergies Home Medications Medication Instructions Recorded Confirmed Type traMADol HCL 50 mg PO Q6H PRN 05/12/22 07/07/23 History Cetirizine HCl [Zyrtec] 10 mg PO DAILY 07/07/23 07/07/23 History Lisinopril-Hctz 10-12.5 mg 1 each PO DAILY #30 tab 07/09/23 Rx [Zestoretic 10-12.5] Allergies Allergy/AdvReac Type Severity Reaction Status Date / Time No Known Allergies Allergy Verified 07/07/23 12:12 Surgical - Exam Vital Signs Temp Pulse Resp BP Pulse Ox 97.8 F 62 16 154/88 95 07/06/23 19:22 07/06/23 19:22 07/06/23 19:22 07/06/23 19:22 07/06/23 19:22 Results - Labs 07/08/23 07:52 07/08/23 07:52
[2023-07-09 16:31] VITALS: BP 146/78; PULSE 53; TEMP 98.3
--- NOTE | 2023-07-09 18:57 | P.EPPROC ---
- EP Procedure Note Electrophysiology Procedure Note: Tilt table test for recurrent syncope Twelve-lead EKG shows sinus rhythm normal [place] narrow QRS normal ST segments Normal QT interval Tilt table test per protocol Baseline blood pressure 151/79 mmHg heart rate in the 70s Patient was tilted upright medical of 70 per protocol Baseline blood pressure 151/79 mmHg Baseline heart rate 76 beats a minute Patient was tilted upright at an angle of 70 per protocol No change in heart rate blood pressure No syncope Impression Normal tilt table test no evidence for neurocardiogenic syncope Normal 12-lead EKG Suggest Consider implantation of a loop monitor for recurrent infrequent syncope
--- NOTE | 2023-07-10 01:45 | EEG ---
ELECTROENCEPHALOGRAM REPORT PREAMBLE: This is a 72-year-old male with syncope versus seizure. EEG FINDINGS: This is a 21-channel digital EEG recorded with video component, utilizing 10/20 international system with referential and bipolar montages. Background consists of well-developed, but moderately well regulated, somewhat suppressed low amplitude activity with some presence of fast frequency beta activity seen in bihemispheric region. Background seems to be slightly reactive to eye opening and closing. Photic driving response was seen with some flash frequencies. Drowsiness and then stage 2 sleep was attained with presence of vertex waves, sleep spindles. No focal or generalized epileptiform activity was seen. IMPRESSION: This is a borderline abnormal EEG due to suppressed background with presence of excessive low-voltage fast frequency beta activity, suggestive of medication effect. No epileptiform activity was seen. MMODL / IJN: [id number] /
== END 2023-07-09 15:51 | disposition home or self-care (01) ==
LOC: EC 19:20 → 6NMEDSUR 23:48
PROVIDERS: ADMIT Internal Medicine; ATTEND Internal Medicine
DX: R55 Syncope and collapse (principal); R00.1 Bradycardia, unspecified; K21.9 Gastro-esophageal reflux disease without esophagitis; F12.90 Cannabis use, unspecified, uncomplicated; F10.90 Alcohol use, unspecified, uncomplicated; R79.89 Other specified abnormal findings of blood chemistry; J30.2 Other seasonal allergic rhinitis; G89.29 Other chronic pain; I65.21 Occlusion and stenosis of right carotid artery; I35.0 Nonrheumatic aortic (valve) stenosis; R94.01 Abnormal electroencephalogram [EEG]; Z85.038 Personal history of other malignant neoplasm of large intestine; Z87.891 Personal history of nicotine dependence; Z79.899 Other long term (current) drug therapy
CPT/HCPCS: 36415; 71275; 80048; 80053; 83735; 84443; 84484; 85025; 85379; 85610; 85730; 93005; 93306; 93660; 93880; 94760; 95816; 96361; 96374; 99285

== ENCOUNTER → 2023-08-31 | Outpatient (CLI) | payer MEDICARE, OTHER ==
--- NOTE | 2023-09-03 10:09 | PE ---
EXAMINATION TYPE: PET CT fusion skull to thigh DATE OF EXAM: 08/31/2023 COMPARISON: CTA chest 07/06/2023 Prior PET/CT: 03/10/2023 HISTORY: Colon cancer, mid transverse colon TECHNIQUE: Following the intravenous administration of 9.1 mCi of F-18 FDG, whole body images are pe rformed from the skull base to the midthigh. Images are reviewed on the computer in the coronal, axi al, and sagittal planes. Reconstructed rotating images are created on independent workstation and re viewed on the computer. A localization and attenuation correction CT is performed in conjunction wi th the PET scan. DLP: 479.06 mGycm SCAN: Subsequent Blood glucose: 91 mg/dL Average Mediastinum SUV: 1.31 Average Liver SUV: 2.33 FINDINGS: NECK: There is opacification of the left maxillary sinus. Mild diffuse increased uptake is within th is region. This could be inflammatory in nature. SUV is 3.78. Underlying neoplasm should be considere d. There is marked increased uptake within the right thyroid lobe region with an SUV of 52.52. Workup fo r neoplasm recommended. THORAX: No abnormal uptake ABDOMEN: No abnormal uptake PELVIS: No abnormal uptake OSSEOUS STRUCTURES: No abnormal uptake LOCALIZATION CT: Right thyroid lobe is mildly more prominent than the left. Obvious mass is not ident ified. There is some mild heterogeneity present. Opacification of the left maxillary sinus is eviden t. COMPARISON: Uptake within the right thyroid lobe is similar to the comparison. Right thyroid lobe ravinder ears similar in appearance on localization CTs. IMPRESSION: 1. No suspicious changes to suggest metastatic colon cancer. 2. Some mild uptake is within the left maxillary sinus. Consider additional workup for underlying raymundo plasm. Inflammatory changes are somewhat more likely. 3. Marked intense uptake within the right thyroid lobe remains present. Neoplasm not excluded.
== END | disposition home or self-care (01) ==
LOC: RADPETMAIN 10:18
PROVIDERS: ATTEND Internal Medicine Hematology & Oncology
DX: C18.4 Malignant neoplasm of transverse colon (principal)
CPT/HCPCS: 78815; A9552

== ENCOUNTER → 2024-03-06 | Outpatient (CLI) | payer MEDICARE, OTHER ==
--- NOTE | 2024-03-06 12:19 | PE ---
EXAMINATION TYPE: PET CT fusion skull to thigh DATE OF EXAM: 03/06/2024 COMPARISON: No recent pertinent CT Prior PET/CT: 08/31/2023 HISTORY: : Cancer TECHNIQUE: Following the intravenous administration of 10.15 mCi of F-18 FDG, whole body images are performed from the skull base to the midthigh. Images are reviewed on the computer in the coronal, a xial, and sagittal planes. Reconstructed rotating images are created on independent workstation and reviewed on the computer. A localization and attenuation correction CT is performed in conjunction with the PET scan. DLP: 784.65 mGycm SCAN: Subsequent Blood glucose: 101 mg/dL Average Mediastinum SUV: 2.6 Average Liver SUV: 3.07 FINDINGS: NECK: There is mild increased uptake within the left maxillary sinus which appears opacified on the localization CT. Findings are likely related to inflammatory changes from sinusitis. Clinical correla tion recommended. THORAX: There is marked uptake within what appears to be the right thyroid lobe. SUV value 59.53, janet ge 68. There is uptake within a lateral right apical lung mass, image 71, SUV 9.92. Findings are suspicious for metastatic disease. ABDOMEN: No abnormal uptake PELVIS: No abnormal uptake OSSEOUS STRUCTURES: No abnormal uptake LOCALIZATION CT: Scattered diverticuli within the sigmoid colon. There is some fusiform prominence of the mid abdominal aorta without aneurysmal dilatation. COMPARISON: Mild uptake within the left maxillary sinus was present previously. Marked uptake in the region of the right thyroid lobe was present previously. Right apical uptake is new. IMPRESSION: 1. Marked uptake remaining within the right neck. 2. New right apical uptake suspicious for metastatic disease. 3. There is likely some inflammatory type uptake within the opacified left maxillary sinus.
== END | disposition home or self-care (01) ==
LOC: RADPETMAIN 09:29
PROVIDERS: ATTEND Internal Medicine Hematology & Oncology
DX: C18.4 Malignant neoplasm of transverse colon (principal)
CPT/HCPCS: 78815; A9552

== ENCOUNTER → 2024-03-25 | Outpatient (CLI) | payer MEDICARE, OTHER ==
--- NOTE | 2024-03-25 10:32 | MR ---
EXAMINATION TYPE: MR pelvis wo/w con DATE OF EXAM: 03/25/2024 9:16 AM CLINICAL INDICATION:Male, 73 years old with history of C18.4 colon ca; [facility], COMPARISON: Pet/CT 03/06/2024 TECHNIQUE: Triplane multisequence imaging was performed of the pelvis. IV Contrast: cc 8.5 cc Gadavist FINDINGS: Reproductive: Prostate: Enlarged for size measuring 5.6 cm in transverse dimension. Seminal vesicle's: Unremarkable. Testes: Unremarkable. Bladder: Unremarkable. Bowel: Unremarkable as visualized. The visualized colon is rather unremarkable. No abnormal bowel wa ll thickening. There is scattered colonic diverticula visualized. Peritoneum: A small amount of free fluid in the pelvis. Lymph nodes: No evidence of adenopathy. Vasculature: Unremarkable. Musculoskeletal: Bone marrow signal is within normal signal intensity. Abdominal wall/soft tissues: Affecting umbilical hernia. Fat-containing left inguinal hernia. IMPRESSION: Motion limited exam. No lymphadenopathy or abnormal postcontrast enhancement. No bowel wall thickenin g or evidence for mass.
== END | disposition home or self-care (01) ==
LOC: RADMRIMAIN 08:06
PROVIDERS: ATTEND Internal Medicine Hematology & Oncology
DX: C18.4 Malignant neoplasm of transverse colon (principal)
CPT/HCPCS: 72197; A9585

== ENCOUNTER 2024-07-31 11:13 | Day surgery (SDC) | payer MEDICARE, OTHER ==
[~2024-07-31 11:13] MED LIST changes: -ALPRAZolam 0.25 MG TAB PO STA; +HYDROmorphone 0.5 MG/0.5 ML SYRINGE IVP PRN; -HYDROmorphone 1 MG/ML 1 ML SYRINGE IVP STA; +LACTATED RINGERS 1,000 ML IV SCH; +LIDOCAINE 1% (10MG/ML) FOR IV START INTRADERMA PRN; +droPERidol 5 MG/2 ML VIAL IVP ONE
[2024-07-31 11:56] VITALS: BP 159/94; PULSE 73; RESP 15; TEMP 98.1
[2024-07-31] MEDS: IV FLUID CONTINUATION 1,000 ML IV ONE (11:57)
[2024-07-31] MEDS: LACTATED RINGERS 1,000 ML IV SCH (12:05)
[2024-07-31] MEDS: ONDANSETRON 4 MG/2 ML VIAL IVP ONE (12:06)
[2024-07-31] MEDS: DEXAMETHASONE SOD PHOSPHATE 4 MG/ML 1 ML VIAL IV ONE (12:06)
--- NOTE | 2024-08-07 14:16 | CT ---
EXAMINATION TYPE: CT chest wo con CT DLP: 466.5 mGycm, Automated exposure control for dose reduction was used. DATE OF EXAM: 07/31/2024 11:54 AM COMPARISON: Chest radiograph 07/16/2024, PET/CT 03/06/2024, CTA chest 07/06/2023 CLINICAL INDICATION:Male, 73 years old with history of ion robot; PHH, pre bronchoscopy TECHNIQUE: Multiple axial images were obtained through the chest without IV contrast. Lack of IV or o ral contrast limits evaluation of solid and hollow organ viscera. . FINDINGS: LUNGS/ PLEURA: Biapical pleural-parenchymal scarring. No pleural effusion or pneumothorax. Resolutio n of previously seen right apical consolidative opacity at site of previous FDG activity. Development of left apical groundglass opacity (series 4, image 48). Right lateral upper lobe reticular peripher al groundglass opacities. Mild paraseptal emphysematous changes. A few punctate scattered calcified g ranulomas. Few stable peripheral pulmonary micronodules with an example including a right lower lobe 4 mm nodule (series 4, image 270). AIRWAY: Patent and unremarkable.. HEART: Size within normal limits. No sizable pericardial effusion. MEDIASTINUM: No gross evidence of adenopathy. VASCULATURE: No aortic aneurysm. Right anterior chest wall Mediport catheter distal tip terminating at the low SVC. Atherosclerotic calcification of the aorta and its branches. MUSCULOSKELETAL: No acute osseous abnormalities. Multilevel degenerative disc disease. SOFT TISSUES/LYMPH NODES: Unremarkable. LOWER NECK: Redemonstration of a 3.4 cm hypodense nodule within the right thyroid lobe which was FDG avid on prior PET/CT. UPPER ABDOMEN: No significant findings. IMPRESSION: 1. Resolution of previously seen right apical consolidation which was FDG avid on prior PET/CT. Likel y resolved infectious/inflammatory processes and/or positive response to therapy. 2. New 7 mL groundglass opacity within the left apex with additional few scattered reticular opacitie s within the right upper lobe peripherally. Finding suggests an infectious/inflammatory process. 3. Stable enlarged right thyroid lobe nodule which was FDG avid on prior PET/CT. Previously biopsied. [facility], , 08/07/2024 2:13 PM
== END 2024-07-31 12:49 | disposition home or self-care (01) ==
LOC: ORWHC2ENDO 11:13
PROVIDERS: ATTEND Internal Medicine Critical Care Medicine
DX: R91.8 Other nonspecific abnormal finding of lung field
CPT/HCPCS: 71250; J1100; J2405

== ENCOUNTER → 2025-03-12 | Outpatient (CLI) | payer MEDICARE, OTHER ==
--- NOTE | 2025-03-15 09:07 | PE ---
EXAMINATION TYPE: PET CT fusion skull to thigh DATE OF EXAM: 03/12/2025 CLINICAL INDICATION:Male, 74 years old with history of C18.4 colon ca; TECHNIQUE: Following the intravenous administration of 12.50 mCi of F-18 FDG, whole body images are performed from the skull base to the midthigh. Images are reviewed on the computer in the coronal, axial, and sagittal planes. Reconstructed rotating images are created on independent workstation and reviewed on the computer. A non-contrast CT is performed in conjunction with the PET scan. Glucose level 95 mg/dL CT DLP: 823.47 mGycm, Automated exposure control for dose reduction was used. COMPARISON: CT 07/31/2024, 07/06/2023, PET/CT 03/06/2024, 08/31/2023, 03/10/2023, 09/22/2022, MRI: FINDINGS: Mediastinal SUV mean is 1.8. Hepatic parenchyma SUV mean is 2.3. SKULL BASE AND NECK: Complete opacification of the left frontal and maxillary sinuses with additional moderate mucosal opa cification of the left ethmoid sinus. Mild mucosal thickening of the right anterior ethmoid sinus. Th ere is some FDG activity again redemonstrated within the opacified left frontal and left maxilla sinu ses with a max SUV of 6.7. Previously 6.8. Redemonstration of focal intense radiotracer uptake within the right thyroid lobe corresponding to a dominant thyroid nodule. Demonstrates a maximum SUV of 88, previously 85. CHEST, MEDIASTINUM, AND HILAR REGION: Resolution of previously demonstrated left apical groundglass nodule. Additional resolution of previo usly demonstrated right apical FDG avid consolidation. Development of patchy wedge-shaped consolidative opacities within the posterior right upper lobe. Dem onstrates increased FDG activity with a maximum SUV of 9.3. Additional new patchy consolidative opacity within the medial aspect of the right lower lobe without suspicious FDG activity. Bilateral lower lobe dependent subsegmental atelectasis. ABDOMEN AND PELVIS: No suspicious radiotracer activity. Postsurgical changes of the bowel anastomosis identified. No suspicious wall thickening. MUSCULOSKELETAL STRUCTURES: No suspicious radiotracer activity. OTHER CT: Mild bilateral carotid bulb calcifications. Right anterior IJ approach Mediport catheter di stal tip in the mid SVC. Mild cardiomegaly. Mild to moderate coronary arterial calcifications. Degene rative changes of the spine. Degenerative changes of the pubic symphysis. Distal colonic diverticulos is without evidence for acute diverticulitis. Atherosclerotic calcification of the aorta and its bran ches. Stable mid abdominal aortic aneurysm measuring up to 3.6 cm. Prostatomegaly measuring 6.0 cm in transverse dimension. IMPRESSION: 1. Resolution of left apical groundglass nodule with additional previously seen FDG avid right apical consolidation resolved. Development of patchy posterior right upper lung FDG avid consolidation cons istent with pneumonia. Underlying neoplasm is not entirely excluded. Continued follow-up is recommend ed with CT chest in 3 months. 2. Redemonstration of opacification of the left frontal and maxillary sinuses with mild FDG activity consistent with infection/inflammation sinus disease. 3. Redemonstrated of intensely FDG avid right thyroid dominant nodule. Correlate with prior biopsy re sults. 4. No other suspicious FDG activity to suggest metastasis or recurrence. [facility], , 03/15/2025 9:05 AM
== END | disposition home or self-care (01) ==
LOC: RADPETMAIN 10:07
PROVIDERS: ATTEND Internal Medicine Hematology & Oncology
DX: C18.4 Malignant neoplasm of transverse colon (principal); R91.1 Solitary pulmonary nodule; J34.89 Other specified disorders of nose and nasal sinuses
CPT/HCPCS: 78815; A9552